=== PATIENT | female | born 1965 | race Two or more races ===

== ENCOUNTER 2020-01-19 12:47 | Inpatient (IN) | payer MEDICAID ==
[~2020-01-19] VITALS: Ht 152.4 cm; Wt 49.9 kg
[2020-01-19 13:00] VITALS: BP 96/63
--- NOTE | 2020-01-19 13:15 | NUR ---
ED Nurse Note: PT. BROUGHT IN BY [facility] DUE TO FLU-LIKE SYMPTOMS. PT IS A/OX3, BOLIVIAN SPEAKING, CONTINENT B/B, VSS AT THIS TIME, ON ROOM AIR, RESPIRATIONS EVEN AND UNLABORED, NAD NOTED, DENIES PAIN AT THIS TIME, AMBULATORY.
--- NOTE | 2020-01-19 13:30 | NUR ---
ED Nurse Note: INSERTED IV ON RAC 22G AND LFA 22G, INTACT AND PATENT. BLOOD COLLECTED AND SENT TO LAB.
--- NOTE | 2020-01-19 13:31 | Emergency Room Report ---
History of Present Illness General Chief Complaint: Flu Like Symptoms Source: Medical Record, EMS, PMD - Dr. Bower (Esperanza Bill M.D.) Present Illness HPI Patient is a 54-year-old female past medical history of HIV, hepatic encephalopathy, CVA who was brought in from her extended care facility to the ER by EMS for flulike symptoms. Patient's primary care physician called ahead of time saying that there is a COVID-19 outbreak in their extended care facility. Patient reportedly told the staff there that she felt weak and could not taste her food. Patient is awake but confused and a poor historian. She has no acute complaints. She cannot tell me where she is or why she is here. 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: No (Esperanza Bill M.D.) Patient History Reviewed Nursing Documentation: PMH: Agreed; PSxH: Agreed (Esperanza Bill M.D.) Review of Systems All Other Systems: limited - encephalopathy (Esperanza Bill M.D.) Physical Exam Vital Signs Date Time Temp Pulse Resp B/P (MAP) Pulse Ox O2 Delivery O2 Flow Rate FiO2 01/19/20 12:51 98.8 74 18 96/63 (74) 94 Room Air Sp02 EP Interpretation: reviewed, abnormal - hypoxic General Appearance: no apparent distress Head: normocephalic, atraumatic Eyes: bilateral eye normal inspection, bilateral eye PERRL ENT: dry mucus membranes Neck: full range of motion, no meningismus Respiratory: no respiratory distress, no accessory muscle use, speaking full sentences Cardiovascular #1: regular rate, rhythm Gastrointestinal: non tender, soft Rectal: deferred Neurologic: other - Disoriented and confused Skin: no rash Lymphatic: no adenopathy (Esperanza Bill M.D.) Procedures Critical Care Time Critical Care Time Total critical care time: Approximately 31 minutes Due to a high probability of clinically significant, life threatening deterioration, the patient required the highest level of preparedness to intervene emergently and I personally spent this critical care time directly and personally managing the patient. This critical care time included obtaining a history, examining the patient, pulse oximetry, ordering and reviewing studies, ordering treatments, evaluating response to treatment and updating management plan as needed, frequent reassessment and discussion with other providers as well as arranging for ultimate disposition. This critical to care time was performed to assess and manage the high probability of life-threatening deterioration that could result in multiorgan failure. This critical care time is separate from the separately billable procedures and treating other patients. (Harry Wyatt MD) Medical Decision Making Diagnostic Impression: Primary Impression: Pneumonia due to COVID-19 virus Additional Impressions: AMS (altered mental status) Elevated d-dimer ER Course Assumed care of the patient from the previous provider at approximately 1400 hrs. Please refer to initial note for full history and physical exam. Briefly, 54-year-old alf resident presents for altered mental status and loss of sense of smell and taste. Patient tested positive for COVID-19. Possible early infiltrate right lower lobe. Treated with antibiotics. D-dimer elevated. Treated with Lovenox. Patient is saturating 100% on room air, no respiratory distress, heart rate within normal limits. Admitted to [facility], Dr. Gallegos for further care. Laboratory Tests Test 01/19/20 13:30 01/19/20 14:23 01/19/20 15:20 Prothrombin Time 10.0 SEC (9.30-11.50) Prothrombin Time INR 0.9 (0.9-1.1) Activated Partial Thromboplast Time 25 SEC (23-33) D-Dimer > 35.20 mg/L FEU Sodium Level 135 MMOL/L (136-145) L Potassium Level 4.3 MMOL/L (3.5-5.1) Chloride Level 105 MMOL/L (98-107) Carbon Dioxide Level 24 MMOL/L (21-32) Anion Gap 6 mmol/L (5-15) Blood Urea Nitrogen 23 mg/dL (7-18) H Creatinine 0.9 MG/DL (0.55-1.30) Estimated Glomerular Filtration Rate > 60 mL/min (>60) Glucose Level 90 MG/DL (74-106) Lactic Acid Level 0.60 mmol/L (0.4-2.0) Calcium Level 8.4 MG/DL (8.5-10.1) L Magnesium Level 2.3 MG/DL (1.8-2.4) Ferritin 129 NG/ML (8-388) Total Bilirubin 0.5 MG/DL (0.2-1.0) Aspartate Amino Transferase (AST) 40 U/L (15-37) H Alanine Aminotransferase (ALT) 30 U/L (12-78) Alkaline Phosphatase 89 U/L (46-116) Ammonia 44 umol/L (11-32) H Lactate Dehydrogenase 273 U/L (81-234) H Total Creatine Kinase 85 U/L (26-308) Creatine Kinase MB < 0.5 NG/ML (0.0-3.6) Creatine Kinase MB Relative Index 0.5 Troponin I 0.000 ng/mL (0.000-0.056) C-Reactive Protein, Quantitative 1.8 mg/dL (0.00-0.90) H Pro-B-Type Natriuretic Peptide 60 pg/mL (0-125) Total Protein 9.8 G/DL (6.4-8.2) H Albumin 3.0 G/DL (3.4-5.0) L Globulin 6.8 g/dL Albumin/Globulin Ratio 0.4 (1.0-2.7) L Arterial Blood pH 7.386 (7.350-7.450) Arterial Blood Partial Pressure CO2 34.7 mmHg (35.0-45.0) L Arterial Blood Partial Pressure O2 81.2 mmHg (75.0-100.0) Arterial Blood HCO3 20.3 mmol/L (22.0-26.0) L Arterial Blood Oxygen Saturation 95.2 % (95-100) Arterial Blood Base Excess -4.0 (-2-2) L Gonzalo Test Positive White Blood Count 6.0 K/UL (4.8-10.8) Red Blood Count 3.88 M/UL (4.20-5.40) L Hemoglobin 12.3 G/DL (12.0-16.0) Hematocrit 36.3 % (37.0-47.0) L Mean Corpuscular Volume 94 FL (80-99) Mean Corpuscular Hemoglobin 31.6 PG (27.0-31.0) H Mean Corpuscular Hemoglobin Concent 33.7 G/DL (32.0-36.0) Red Cell Distribution Width 13.7 % (11.6-14.8) Platelet Count 268 K/UL (150-450) Mean Platelet Volume 6.0 FL (6.5-10.1) L Neutrophils (%) (Auto) 24.9 % (45.0-75.0) L Lymphocytes (%) (Auto) 62.2 % (20.0-45.0) H Monocytes (%) (Auto) 10.4 % (1.0-10.0) H Eosinophils (%) (Auto) 1.3 % (0.0-3.0) Basophils (%) (Auto) 1.2 % (0.0-2.0) Microbiology Date/Time Source Procedure Growth Status 01/19/20 11:30 Nasopharynx SARS-CoV-2 RdRp Gene Assay - Final Complete (Harry Wyatt MD) EKG Diagnostic Results Troponin ordered: Yes When was troponin ordered?: Jan 19, 2020 EKG Time: 13:23 EP Interpretation: Esperanza Bill MD Rate: normal - 74 bpm Rhythm: NSR ST Segments: no acute changes ASA given to the pt in ED: No (Esperanza Bill M.D.) Rhythm Strip Diag. Results Rhythm Strip Time: 13:32 EP Interpretation: yes - Esperanza Bill MD Rate: 83 bpm Rhythm: NSR, no PVC's, no ectopy (Esperanza Bill M.D.) Chest X-Ray Diagnostic Results Chest X-Ray Diagnostic Results : Chest X-Ray Ordered: Yes # of Views/Limited/Complete: 1 View Indication: Shortness of Breath EP Interpretation: Yes Interpretation: no effusion, no pneumothorax, other - Questionable early infiltrate right lower lobe versus atelectasis Impression: Other - Early pneumonia right lower lobe Electronically Signed by: Electronically signed by Dr. Harry Wyatt MD (Harry Wyatt MD) Last Vital Signs Date Time Temp Pulse Resp B/P (MAP) Pulse Ox O2 Delivery O2 Flow Rate FiO2 01/19/20 12:51 98.8 74 18 96/63 (74) 94 Room Air (Esperanza Bill M.D.) Disposition: ADMITTED INPATIENT Condition: Serious Esperanza Bill M.D. Jan 19, 2020 13:31 Harry Wyatt MD Jan 19, 2020 14:42
[2020-01-19] MEDS ORDERED: Cefepime HCl 2 GM in D5W 55 ML IVPB ONE (14:00)
[2020-01-19] MEDS ORDERED: Vancomycin 1 GM in NS 275 ML IVPB ONE (14:00)
[2020-01-19 14:47] LABS: ANION GAP 6 mmol/L (5-15); BLOOD UREA NITROGEN 23 mg/dL (7-18); CALCIUM 8.4 MG/DL (8.5-10.1); CARBON DIOXIDE 24 MMOL/L (21-32); CHLORIDE 105 MMOL/L (98-107); CREATININE 0.9 MG/DL (0.55-1.30); POTASSIUM 4.3 MMOL/L (3.5-5.1); SODIUM 135 MMOL/L (136-145)
[2020-01-19 14:50] LABS: AMMONIA 44 umol/L (11-32)
[2020-01-19 14:56] LABS: INR 0.9 (0.9-1.1); PARTIAL THROMBOPLASTIN TIME 25 SEC (23-33)
[2020-01-19 15:03] LABS: ALANINE AMINOTRANSFERASE 30 U/L (12-78); ALBUMIN/GLOBULIN RATIO 0.4 (1.0-2.7); ALKALINE PHOSPHATASE 89 U/L (46-116); ASPARTATE AMINO TRANSFERASE 40 U/L (15-37); BILIRUBIN,TOTAL 0.5 MG/DL (0.2-1.0); CKMB < 0.5 NG/ML (0.0-3.6); CREATINE KINASE 85 U/L (26-308); FERRITIN 129 NG/ML (8-388); LACTATE DEHYDROGENASE 273 U/L (81-234)
[2020-01-19 15:39] LABS: HEMATOCRIT 36.3 % (37.0-47.0); HEMOGLOBIN 12.3 G/DL (12.0-16.0); MEAN CORPUSCULAR VOLUME 94 FL (80-99); PLATELET COUNT 268 K/UL (150-450); RED BLOOD COUNT 3.88 M/UL (4.20-5.40); RED CELL DISTRIBUTION WIDTH 13.7 % (11.6-14.8)
[2020-01-19] MEDS ORDERED: MULTIVITAMINS1 EAC8 ORAL (15:39)
[2020-01-19] MEDS ORDERED: ADVIL200 M2 ORAL (15:39)
[2020-01-19] MEDS ORDERED: VITAMIN D325 MC1 PO (15:39)
[2020-01-19] MEDS ORDERED: DOCUSATE SODIU100 MG ORAL (15:39)
[2020-01-19] MEDS ORDERED: UROCIT-K10 MEQ PO (15:39)
[2020-01-19] MEDS ORDERED: BIKTARVY 50-201 EACH PO (15:39)
[2020-01-19] MEDS ORDERED: VITAMIN B COMP1 EAC2 ORAL (15:39)
[2020-01-19] MEDS ORDERED: MILK OF MA400 MG/51 ORAL (15:39)
[2020-01-19] MEDS ORDERED: MIRALAX17 G2 ORAL (15:39)
[2020-01-19 15:40] LABS: BASOPHILS % (AUTO) 1.2 % (0.0-2.0); EOSINOPHILS % (AUTO) 1.3 % (0.0-3.0); LYMPHOCYTES % (AUTO) 62.2 % (20.0-45.0); MONOCYTES % (AUTO) 10.4 % (1.0-10.0); NEUTROPHILS % (AUTO) 24.9 % (45.0-75.0)
[2020-01-19] MEDS ORDERED: Enoxaparin 100mg Inj SUBQ SCH (16:45)
--- NOTE | 2020-01-19 16:45 | NUR ---
Note undone in EDM - 01/19/20 at 1647 by GATO ED Nurse Note: PT. BROUGHT IN BY [facility] DUE TO FLU-LIKE SYMPTOMS. PT IS A/OX3, CYMRO SPEAKING, CONTINENT B/B, VSS AT THIS TIME, ON ROOM AIR, RESPIRATIONS EVEN AND UNLABORED, NAD NOTED, DENIES PAIN AT THIS TIME, AMBULATORY.
--- NOTE | 2020-01-19 17:06 | NUR ---
ED Nurse Note: gave report to tanner link on tele unit. rn will call when bed is ready.
--- NOTE | 2020-01-19 17:47 | NUR ---
ED Nurse Note: pt was admitted to [facility] due to covid positive and pna. vss, nad noted, denies pain at this time, on room air, transferred via gurney.
--- NOTE | 2020-01-19 17:50 | NUR ---
NURSE NOTES: Received patient into room 403 bed 2,patient alert toname,respirations unlabored,will notify alarm call light within reach.
--- NOTE | 2020-01-19 18:07 | Diagnostic Imaging Report ---
Indication: Shortness of breath Technique: One view of the chest Comparison: none Findings: There is a calcified granuloma in the right midlung. Is minimal atelectasis at the left lateral lung base. Lungs and pleural spaces are otherwise clear. The heart size is normal. Impression: Evidence of old granulomatous disease No acute process
--- NOTE | 2020-01-19 19:45 | NUR ---
NURSE HAND-OFF: Jessika BONNER Important Events on Shift:[Admit ] Patient Status: [] Diet: [] Pending Orders: [ Pending Results/Labs:[] Pending MD notification:[] Latest Vital Signs: Temperature 98.4 , Pulse 78 , B/P 128 /67 , Respiratory Rate 16 , O2 SAT 99 , Room Air, O2 Flow Rate . Vital Sign Comment: [] Latest Gardner Fall Score: Fall Risk: Y Safety Measures: Call light , Bed Alarm , Side Rails , Bed position . Fall Precautions: Y Report given to [].
--- NOTE | 2020-01-19 19:46 | NUR ---
NURSE NOTES: Received patient in no apparent distress. A&OX2, confused. IV sites are patent and intact. Bed in lowest position. Call light within reach. Will continue to monitor.
[2020-01-19 20:00] VITALS: BP 128/70
--- NOTE | 2020-01-19 20:32 | NUR ---
NURSE NOTES: Obtained new admit order from Dr. Gallegos.
[2020-01-19] MEDS ORDERED: Miralax 17gm pkt ORAL PRN (21:30)
[2020-01-19] MEDS ORDERED: Acetaminophen 500mg (ES) tab ORAL PRN (21:30)
[2020-01-19] MEDS ORDERED: Milk of Magnesia 30ml Ud ORAL PRN (21:30)
--- NOTE | 2020-01-19 21:50 | NUR ---
NURSE NOTES: Pharmacy called, they don't have Biktarvy(HIV medication). Nurse contact Dr. Gallegos. Dr. Gallegos wants to contact Dr. Beatriz Frazier. Nurse contact Dr. Beatriz Frazier. Dr. Beatriz Frazier says that he will come tomorrow and will prescribe medication.
--- NOTE | 2020-01-19 23:01 | History and Physical Report ---
DATE OF ADMISSION: 01/19/2020 HISTORY OF PRESENT ILLNESS: Patient is admitted for COVID positive pneumonia, elevated D-dimer came from a custodial with outbreak with flu-like symptoms with fever at the custodial. Infiltrate on the chest x-ray and got antibiotics in the ER for COVID pneumonia. Patient has shortness of breath and cough. Patient has history of HIV in the past, encephalopathy, poor historian. Also has history of CVA. Comes in with shortness of breath and cough and flu-like symptoms. Admitted for COVID positive pneumonia. PAST MEDICAL HISTORY: History of hepatic encephalopathy, cirrhosis, HIV, CVA, constipation. PAST SURGICAL HISTORY: Denies. FAMILY HISTORY: Noncontributory. SOCIAL HISTORY: Has history of alcohol abuse, history of smoking. Denies history of drug abuse. Comes from a custodial. MEDICATIONS: Docusate, ibuprofen, potassium. ALLERGIES: Risperidone, lamivudine. REVIEW OF SYSTEMS: HEENT: Denies headaches. RESPIRATORY: Reports shortness of breath and cough. CARDIOVASCULAR: Denies chest pain. GASTROINTESTINAL: Denies nausea, vomiting, or diarrhea. EXTREMITIES: Denies pain. CENTRAL NERVOUS SYSTEM: Very poor historian. PHYSICAL EXAMINATION: VITAL SIGNS: Temperature 98.8, pulse 74, blood pressure 196/60. HEENT: PERRLA. CHEST: Bibasilar rhonchi. CARDIOVASCULAR: Regular rate and rhythm. No murmurs or extra sounds. GASTROINTESTINAL: Soft, nontender, nondistended. No organomegaly. EXTREMITIES: No edema. Has generalized weakness. Reflexes equal on both sides. LABORATORY AND DIAGNOSTIC DATA: Chest x-ray shows possible infiltrate. WBC of 6, hemoglobin 12.3, platelets of 268. Sodium 135, potassium 4.3, BUN of 23, creatinine 1.9, glucose of 90. AST of 40, ALT of 30. ASSESSMENT AND PLAN: COVID-positive pneumonia as well as elevated D-dimer, fever at the custodial, infiltrate on the chest x-ray. I have consulted Dr. Domenic Perdomo, Dr. Gerald Win, Dr. Karl Henderson to help with the management of above-mentioned abnormal imaging, abnormal symptoms, abnormal laboratory findings. Antibiotics per Dr. Karl Henderson. Rach Gallegos M.D. DR: EVERARDO JOB#: [id number] CC:
[2020-01-20] VITALS: BP 97/62
[2020-01-20 04:00] VITALS: BP 102/97
--- NOTE | 2020-01-20 06:46 | Consultation ---
History of Present Illness General Chief Complaint: Flu Like Symptoms Present Illness Allergies: Coded Allergies: LAMIVUDINE (Verified Allergy, Unknown, 01/19/20) RISPERIDONE (Verified Allergy, Unknown, 01/19/20) Medication History Scheduled Cholecalciferol (Vitamin D3) (Vitamin D3*), 5,000 UNIT PO DAILY, (Reported) Docusate Sodium* (Docusate Sodium*), 200 MG ORAL DAILY, (Reported) Ibuprofen* (Advil*), 200 MG ORAL Q6H, (Reported) Magnesium Hydroxide* (Milk Of Magnesia*), 30 ML ORAL DAILY, (Reported) Multivitamin With Minerals (Multivitamins With Minerals*), 1 TAB ORAL DAILY, (Reported) Scheduled PRN Polyethylene Glycol 3350* (Miralax*), 17 GM ORAL DAILY PRN for Constipation, (Reported) Miscellaneous Medications Bictegrav/Emtricit/Tenofov Ala (Biktarvy 50-200-25 mg Tablet), 1 EACH PO, (Reported) Potassium Citrate (Urocit-K), 10 MEQ PO, (Reported) Vitamin B Complex (Vitamin B Complex), 1 CAP ORAL, (Reported) Patient History Healthcare decision maker Resuscitation status Advanced Directive on File No Physical Exam Last 24 Hour Vital Signs Date Time Temp Pulse Resp B/P (MAP) Pulse Ox O2 Delivery O2 Flow Rate FiO2 01/20/20 04:00 97.3 82 17 102/97 (99) 98 01/20/20 00:00 98.1 74 17 97/62 (74) 97 01/19/20 21:00 Room Air 01/19/20 20:00 97.3 96 18 128/70 (89) 97 01/19/20 19:00 Room Air 01/19/20 17:43 98.4 78 16 128/67 99 Room Air 01/19/20 13:00 98.8 74 18 96/63 94 Room Air 01/19/20 13:00 74 18 Room Air 100 01/19/20 12:51 98.8 74 18 96/63 (74) 94 Room Air Intake and Output 01/19/20 01/20/20 19:00 07:00 Intake Total 2000 ml Balance 2000 ml Intake Oral 0 ml IV Total 2000 ml # Voids 2 Laboratory Tests Test 01/19/20 13:30 01/19/20 14:23 01/19/20 15:20 Prothrombin Time 10.0 SEC (9.30-11.50) Prothromb Time International Ratio 0.9 (0.9-1.1) Activated Partial Thromboplast Time 25 SEC (23-33) D-Dimer > 35.20 mg/L FEU Sodium Level 135 MMOL/L (136-145) L Potassium Level 4.3 MMOL/L (3.5-5.1) Chloride Level 105 MMOL/L (98-107) Carbon Dioxide Level 24 MMOL/L (21-32) Anion Gap 6 mmol/L (5-15) Blood Urea Nitrogen 23 mg/dL (7-18) H Creatinine 0.9 MG/DL (0.55-1.30) Estimat Glomerular Filtration Rate > 60 mL/min (>60) Glucose Level 90 MG/DL (74-106) Lactic Acid Level 0.60 mmol/L (0.4-2.0) Calcium Level 8.4 MG/DL (8.5-10.1) L Magnesium Level 2.3 MG/DL (1.8-2.4) Ferritin 129 NG/ML (8-388) Total Bilirubin 0.5 MG/DL (0.2-1.0) Aspartate Amino Transf (AST/SGOT) 40 U/L (15-37) H Alanine Aminotransferase (ALT/SGPT) 30 U/L (12-78) Alkaline Phosphatase 89 U/L (46-116) Ammonia 44 umol/L (11-32) H Lactate Dehydrogenase 273 U/L (81-234) H Total Creatine Kinase 85 U/L (26-308) Creatine Kinase MB < 0.5 NG/ML (0.0-3.6) Creatine Kinase MB Relative Index 0.5 Troponin I 0.000 ng/mL (0.000-0.056) C-Reactive Protein, Quantitative 1.8 mg/dL (0.00-0.90) H Pro-B-Type Natriuretic Peptide 60 pg/mL (0-125) Total Protein 9.8 G/DL (6.4-8.2) H Albumin 3.0 G/DL (3.4-5.0) L Globulin 6.8 g/dL Albumin/Globulin Ratio 0.4 (1.0-2.7) L Arterial Blood pH 7.386 (7.350-7.450) Arterial Blood Partial Pressure CO2 34.7 mmHg (35.0-45.0) L Arterial Blood Partial Pressure O2 81.2 mmHg (75.0-100.0) Arterial Blood HCO3 20.3 mmol/L (22.0-26.0) L Arterial Blood Oxygen Saturation 95.2 % (95-100) Arterial Blood Base Excess -4.0 (-2-2) L Gonzalo Test Positive White Blood Count 6.0 K/UL (4.8-10.8) Red Blood Count 3.88 M/UL (4.20-5.40) L Hemoglobin 12.3 G/DL (12.0-16.0) Hematocrit 36.3 % (37.0-47.0) L Mean Corpuscular Volume 94 FL (80-99) Mean Corpuscular Hemoglobin 31.6 PG (27.0-31.0) H Mean Corpuscular Hemoglobin Concent 33.7 G/DL (32.0-36.0) Red Cell Distribution Width 13.7 % (11.6-14.8) Platelet Count 268 K/UL (150-450) Mean Platelet Volume 6.0 FL (6.5-10.1) L Neutrophils (%) (Auto) 24.9 % (45.0-75.0) L Lymphocytes (%) (Auto) 62.2 % (20.0-45.0) H Monocytes (%) (Auto) 10.4 % (1.0-10.0) H Eosinophils (%) (Auto) 1.3 % (0.0-3.0) Basophils (%) (Auto) 1.2 % (0.0-2.0) Microbiology Date/Time Source Procedure Growth Status 01/19/20 11:30 Nasopharynx SARS-CoV-2 RdRp Gene Assay - Final Complete Height (Feet): 5 Height (Inches): 0.00 Weight (Pounds): 110 Medications Current Medications Medications (Trade) Dose Ordered Sig/Gaurav Route PRN Reason Start Time Stop Time Status Last Admin Dose Admin Acetaminophen (Tylenol) 500 mg Q4H PRN ORAL Mild Pain (Pain Scale 1-3) 01/19/20 21:30 02/18/20 21:29 Bisacodyl (Dulcolax) 10 mg DAILYPRN PRN RECTAL Constipation 01/19/20 21:30 04/18/20 21:29 Cyanocobalamin (Vitamin B-12) 500 mcg DAILY ORAL 01/20/20 09:00 02/19/20 08:59 Docusate Sodium (Colace) 200 mg DAILY ORAL 01/20/20 09:00 02/19/20 08:59 Ibuprofen (Advil) 200 mg Q4H PRN ORAL persistent headache 01/19/20 21:15 02/18/20 21:14 Magnesium Hydroxide (Mom) 30 ml DAILYPRN PRN ORAL Constipation 01/19/20 21:30 02/18/20 21:29 Multivitamins (Multivitamins) 1 tab DAILY ORAL 01/20/20 09:00 02/19/20 08:59 Non-Formulary Medication (Non-Formulary Med) 1 ea DAILY ORAL 01/20/20 09:00 02/19/20 08:59 UNV Non-Formulary Medication (Non-Formulary Med) 1 ea DAILY ORAL 01/20/20 09:00 02/19/20 08:59 UNV Polyethylene Glycol (Miralax) 17 gm DAILY PRN ORAL Constipation 01/19/20 21:30 02/18/20 21:29 Trimethoprim/ Sulfamethoxazole (Bactrim-DS) 1 tab 3XW ORAL 01/21/20 09:00 01/28/20 08:59 Vitamin B Complex (Vitamin B Complex) 1 tab DAILY ORAL 01/20/20 09:00 04/19/20 08:59 Vitamin D (Vitamin D) 5,000 intlu DAILY ORAL 01/20/20 09:00 02/19/20 08:59 Assessment/Plan Assessment/Plan: Hematology Consultation REMayte MD: Rach Lou RFC: ANDREA ddimer DOS: 01/20/2020 ID 54-year-old female past medical history of HIV, hepatic encephalopathy, CVA who was brought in from her extended care facility to the ER by EMS for flulike symptoms. Patient's primary care physician called ahead of time saying that there is a COVID-19 outbreak in their extended care facility. Patient yumiko rtedly told the staff there that she felt weak and could not taste her food. Patient is awake but confused and a poor historian. She has no acute complaints. She cannot tell me where she is or why she is here. Allergies: LAMIVUDINE (Verified Allergy, Unknown, 01/19/20) RISPERIDONE (Verified Allergy, Unknown, 01/19/20) COVID-19 Screening Contact w/high risk pt: No Experienced COVID-19 symptoms?: No COVID-19 Testing performed DEDENTER: No Patient History Reviewed Nursing Documentation: PMH: Agreed; PSxH: Agreed Review of Systems All Other Systems: limited - encephalopathy Physical Exam Vitals: reviewed, abnormal - hypoxic Gen: no apparent distress HEENT: normocephalic, atraumatic, dry mucus membranes Respiratory: no respiratory distress Cardiovascular: regular rate, rhythm Gastrointestinal: non tender, soft Rectal: deferred Neurologic: other - Disoriented and confused Skin: no rash Lymphatic: no adenopathy Labs; noted Imaging: noted Assessment and Recs # Elevated ddimer, in this case is very likely due to covid requires minimal anticoag --> duplex lower legs has been ordered --> no e/o pe at this time --> per pulm management # Pneumonia due to COVID-19 virus --> abx and isolation precuations --> consider steriods # AMS (altered mental status) --> likely is due to above # Dehydration --> goal of euvolemia as per renal # Early pneumonia right lower lobe --> abx # Granulmatous disease --> per pulm # Dvt ppx lovenox sq Appreciate consultation and dw Gerald Waterman MD Jan 20, 2020 06:46
[2020-01-20 06:53] LABS: HEMATOCRIT 28.1 % (37.0-47.0); MEAN CORPUSCULAR VOLUME 88 FL (80-99); PLATELET COUNT 236 K/UL (150-450); RED BLOOD COUNT 3.18 M/UL (4.20-5.40); RED CELL DISTRIBUTION WIDTH 15.7 % (11.6-14.8); WHITE BLOOD COUNT 5.1 K/UL (4.8-10.8)
--- NOTE | 2020-01-20 07:17 | NUR ---
NURSE HAND-OFF: Important Events on Shift: Contact Dr. Henderson to continue HIV medication Patient Status: Diet: Regular Pending Orders: Pending Results/Labs: Pending MD notification: Latest Vital Signs: Temperature 97.3 , Pulse 82 , B/P 102 /97 , Respiratory Rate 17 , O2 SAT 98 , Room Air, O2 Flow Rate . Vital Sign Comment: Latest Gardner Fall Score: 75 Fall Risk: High Risk Safety Measures: Call light Within Reach, Bed Alarm Zone 1, Side Rails Side Rails x2, Bed position Low and Locked. Fall Precautions: Yellow Socks Yellow Gown Door Sign Patient Fall Education Report given to Blaine BONNER.
--- NOTE | 2020-01-20 07:18 | NUR ---
NURSE NOTES: Received report from KAILEY Rosen. Patient seen in bed AAOx2 with episodes of confusion, ambulatory with unsteady gait, and on room air. Breathing is even and unlabored with no SOB noted at this time. Patient was instructed to stay in bed and use call light for assistance. Previous shift endorsed that patient has 2 pending prescription needed to continue home meds, will follow up with Maurice Henderson when seen on rounds. Bed is locked and placed in lowest position. Call light within reach. Will continue to monitor
[2020-01-20 07:42] LABS: ALBUMIN 2.6 G/DL (3.4-5.0); ALBUMIN/GLOBULIN RATIO 0.4 (1.0-2.7); BILIRUBIN,TOTAL 0.5 MG/DL (0.2-1.0); CALCIUM 7.8 MG/DL (8.5-10.1); POTASSIUM 3.3 MMOL/L (3.5-5.1)
[2020-01-20 08:00] VITALS: BP 102/68
[2020-01-20] MEDS: Vitamin B-12 500mcg tab ORAL SCH (08:24)
[2020-01-20] MEDS: Vitamin D 1000 IU Tab ORAL SCH (08:24)
[2020-01-20] MEDS: Docusate 100mg cap ORAL SCH (08:24)
[2020-01-20] MEDS: Vitamin B Complex Tab ORAL SCH (08:24)
[2020-01-20] MEDS ORDERED: Enoxaparin 40mg Inj SUBQ SCH (09:00)
--- NOTE | 2020-01-20 10:17 | NUR ---
NURSE NOTES: RN notified Dr. giraldo and made aware of patient Potassium level. RN received order for KCl liquid 20 meq ONCE
--- NOTE | 2020-01-20 11:19 | NUR ---
INSURANCE CLINICALS FAXED TO [facility] [phone] PH [phone]
[2020-01-20 12:00] VITALS: BP 103/67
--- NOTE | 2020-01-20 12:32 | NUR ---
NURSE NOTES: Dr. Freddie Henderson seen during his rounds. RN obtained prescription for biktarvy and faxed to [facility] to deliver to floor. RN made Dr. Gallegos aware that Maurice Henderson will only give prescription for Biktarvy and not potassium citrate. Awaiting call back
--- NOTE | 2020-01-20 13:50 | NUR ---
NURSE NOTES: Per Dr. Gallegos, Rn received order to d/c potassium citrate (home meds)
[2020-01-20] MEDS: Patient's Own Med - BIKTARVY 50-200-25MG TAB ORAL SCH (14:10)
--- NOTE | 2020-01-20 14:16 | Consultation ---
DATE OF CONSULTATION: 01/20/2020 PULMONARY CONSULTATION CONSULTING PHYSICIAN: Domenic Perdomo MD. HISTORY OF PRESENT ILLNESS: This is a 54-year-old female admitted to the hospital for flu-like symptoms. The patient has a history of HIV positivity, hepatic encephalopathy, and previous CVA. At her nursing facility, there is an outbreak of COVID-19. The patient reports that she is unable to taste the food. The patient is a very poor historian. PAST MEDICAL HISTORY: Notable for HIV positivity, history of liver disease, history of previous hepatic encephalopathy, previous CVA. MEDICATIONS: Her list of current medications include Tylenol, Colace, vitamin B12, Lovenox 40 mg daily, Advil, milk of magnesia multivitamins, MiraLAX, Bactrim orally few times a week, vitamin B and D, cefepime, and IV fluids. REVIEW OF SYSTEMS: Denies any headaches, hematemesis, melena, or hematochezia. PHYSICAL EXAMINATION: GENERAL: Reveals a 54-year-old female. VITAL SIGNS: O2 saturation 99% on room air, blood pressure 102/60, heart rate 74, respirations . She is afebrile. HEENT: Unremarkable. CHEST: Clear breath sounds bilaterally. ABDOMEN: Soft. EXTREMITIES: There is no edema. LABORATORY DATA: Lab testing shows initial rapid COVID-19 test gene assay is positive. Other lab testing shows hemoglobin of 10, otherwise normal CBC and BMP. Potassium is 3.3. LDH 273. Troponin is negative. AST 40. Lactic acid 0.6. Coags show D-dimer of greater than 35. IMPRESSION: 1. COVID-19 pneumonia. 2. Elevated inflammatory markers with high D-dimer. 3. Right lower lobe infiltrate. 4. HIV. 5. History of liver disease. DISCUSSION: Admit to the hospital. We will initiate oxygen therapy as needed. We will start Decadron. Defer the use of remdesivir to ID specialist. Given her elevated inflammatory markers, I will initiate full-dose Lovenox. We will follow carefully. Domenic Perdomo M.D. DR: BALDEMAR JOB#: [id number] CC:
--- NOTE | 2020-01-20 14:45 | Consultation ---
DATE OF CONSULTATION: 01/20/2020 INFECTIOUS DISEASE CONSULTATION CONSULTING PHYSICIAN: Karl Henderson MD. PRIMARY ATTENDING PHYSICIAN: Rach Gallegos MD. REASON FOR CONSULTATION: COVID-19 disease and HIV. HISTORY OF PRESENT ILLNESS: This is a 54-year-old female admitted yesterday from a nursing facility with flu-like symptoms and altered mental status. The patient lives in a facility that has an outbreak of COVID-19. PAST MEDICAL HISTORY: Significant for HIV, hepatic encephalopathy. ALLERGIES: Allergic to lamivudine and risperidone. MEDICATIONS: Getting dexamethasone, Bactrim, enoxaparin, Colace, Biktarvy, magnesium hydroxide, Bisacodyl, and ibuprofen. SOCIAL HISTORY: custodial resident. Single. No other history obtainable by the patient. PHYSICAL EXAMINATION: VITAL SIGNS: Temperature 97.7, pulse 70, blood pressure 103/67. GENERAL APPEARANCE: No acute distress. HEAD AND NECK: [place] conjunctivae. HEART: Normal rate. LUNGS: Clear. ABDOMEN: Soft, nontender. EXTREMITIES: No edema. NEUROLOGIC: Awake, alert, responsive. LABORATORY DATA: Chest x-ray showed old granulomatous disease. No acute process. COVID-19 test was positive. WBC 5.1, hemoglobin 10.0, hematocrit 28.1, and platelets 236,000. Sodium 140, potassium 3.3, chloride 110, bicarb 22, BUN 17, creatinine 1. Glucose 79. Ammonia is 44. IMPRESSION: COVID-19 disease, seems to be mild, the patient is on room air oxygen. She has HIV unknown stage, has anemia, has altered mental status. RECOMMENDATION: We will continue Biktarvy. We will discontinue dexamethasone. We will continue Bactrim. We will try to obtain more information regarding past medical history and HIV status. At the end of my exam, I thank Dr. Gallegos for involving me in the care of this patient. Karl Henderson M.D. DR: TRINA JOB#: [id number] CC:
[2020-01-20 16:00] VITALS: BP 110/69
--- NOTE | 2020-01-20 17:41 | NUR ---
NURSE NOTES: Patient changed personal clothes to yellow gown multiple times but patient continuously changes back to personal clothes. RN instructed patient to stay in bed and gave fall risk education
--- NOTE | 2020-01-20 19:13 | NUR ---
NURSE HAND-OFF: Important Events on Shift:KCL 20meq given, Patient Status: stable Diet: regular Pending Orders: venous duplex Pending Results/Labs:n/a Pending MD notification:n/a Latest Vital Signs: Temperature 98.4 , Pulse 67 , B/P 110 /69 , Respiratory Rate 17 , O2 SAT 98 , Room Air, O2 Flow Rate . Vital Sign Comment: stable Latest Gardner Fall Score: 45 Fall Risk: High Risk Safety Measures: Call light Within Reach, Bed Alarm Zone 1, Side Rails Side Rails x2, Bed position Low and Locked. Fall Precautions: Yellow Socks Yellow Gown Door Sign Patient Fall Education Report given to KAILEY Yanes.
--- NOTE | 2020-01-20 19:30 | NUR ---
NURSE NOTES: Received report from KAILEY Cade. Received pt laying in bed AAOx2, on room air, breathing is even and unlabored with no SOB noted at this time. Denies any pain. Patient was instructed to stay in bed and use call light for assistance. Pt verbalized and acknowledge understanding of instructions. Bed is locked and in lowest position. Call light within reach. side rails up x 2. Will continue to monitor.
[2020-01-20 20:00] VITALS: BP 111/70
[2020-01-20] MEDS: Enoxaparin 60mg Inj SUBQ SCH (20:17)
--- NOTE | 2020-01-20 21:20 | General Progress Note ---
Subjective ROS Limited/Unobtainable: Yes Allergies: Coded Allergies: LAMIVUDINE (Verified Allergy, Unknown, 01/19/20) RISPERIDONE (Verified Allergy, Unknown, 01/19/20) Objective Last 24 Hour Vital Signs Date Time Temp Pulse Resp B/P (MAP) Pulse Ox O2 Delivery O2 Flow Rate FiO2 01/20/20 20:00 97.7 80 17 111/70 (84) 97 01/20/20 16:00 98.4 67 17 110/69 (83) 98 01/20/20 12:00 97.7 70 18 103/67 (79) 99 01/20/20 09:00 Room Air 01/20/20 08:00 97.1 79 18 102/68 (79) 99 01/20/20 04:00 97.3 82 17 102/97 (99) 98 01/20/20 00:00 98.1 74 17 97/62 (74) 97 Intake and Output 01/19/20 01/20/20 19:00 07:00 Intake Total 2000 ml 400 ml Balance 2000 ml 400 ml Intake Oral 0 ml IV Total 2000 ml Other 400 ml # Voids 2 3 Laboratory Tests 01/20/20 05:00: White Blood Count 5.1, Red Blood Count 3.18L, Hemoglobin 10.0L, Hematocrit 28.1L , Mean Corpuscular Volume 88, Mean Corpuscular Hemoglobin 31.3H, Mean Corpuscular Hemoglobin Concent 35.4, Red Cell Distribution Width 15.7H, Platelet Count 236, Mean Platelet Volume 5.9L, Neutrophils (%) (Auto) , Lymphocytes (%) (Auto) , Monocytes (%) (Auto) , Eosinophils (%) (Auto) , Basophils (%) (Auto) , Differential Total Cells Counted 100, Neutrophils % (Manual) 22L, Lymphocytes % (Manual) 66H, Monocytes % (Manual) 12H, Eosinophils % (Manual) 0, Basophils % (Manual) 0, Band Neutrophils 0, Platelet Estimate Adequate, Platelet Morphology Normal, Anisocytosis 1+, Sodium Level 140, Potassium Level 3.3L, Chloride Level 110H, Carbon Dioxide Level 22, Anion Gap 8, Blood Urea Nitrogen 17, Creatinine 1.0, Estimat Glomerular Filtration Rate 57.6, Glucose Level 79, Calcium Level 7.8L, Total Bilirubin 0.5, Aspartate Amino Transf (AST/SGOT) 25, Alanine Aminotransferase (ALT/SGPT) 25, Alkaline Phosphatase 74, Total Protein 8.4H, Albumin 2.6L, Globulin 5.8, Albumin/Globulin Ratio 0.4L Height (Feet): 5 Height (Inches): 0.00 Weight (Pounds): 110 Assessment/Plan Problem List: (1) Elevated d-dimer ICD Codes: R79.89 - Other specified abnormal findings of blood chemistry SNOMED: 118601851 (2) Pneumonia due to COVID-19 virus ICD Codes: U07.1 - COVID-19; J12.89 - Other viral pneumonia SNOMED: 327321538957758760 (3) AMS (altered mental status) ICD Codes: R41.82 - Altered mental status, unspecified SNOMED: 381392711 Status: progressing Assessment/Plan: afebrile pna prn supportive care reviewed chart and labs Rach Gallegos MD Jan 20, 2020 21:20
[2020-01-21] VITALS: BP 108/66
[2020-01-21 04:00] VITALS: BP 108/76
--- NOTE | 2020-01-21 06:50 | NUR ---
HAND-OFF: Report given to: KAILEY Cade
--- NOTE | 2020-01-21 06:56 | NUR ---
NURSE HAND-OFF: Important Events on Shift: None Patient Status: Stable Diet: Regular Pending Orders: N/A Pending Results/Labs: BMP Pending MD notification:N/A Latest Vital Signs: Temperature 98.6 , Pulse 82 , B/P 108 /76 , Respiratory Rate 18 , O2 SAT 98 , Room Air, O2 Flow Rate . Vital Sign Comment: Stable Latest Gardner Fall Score: 45 Fall Risk: High Risk Safety Measures: Call light Within Reach, Bed Alarm Zone 1, Side Rails Side Rails x2, Bed position Low and Locked. Fall Precautions: Yellow Socks Yellow Gown Door Sign Patient Fall Education Report given to KAILEY Cade Addendum: 01/21/20 at 0720 by TRUE HERNANDEZ RN Pending Orders: Venous Duplex R/O DVT
[2020-01-21 06:58] LABS: CALCIUM 8.3 MG/DL (8.5-10.1); POTASSIUM 3.5 MMOL/L (3.5-5.1)
--- NOTE | 2020-01-21 07:21 | NUR ---
NURSE HAND-OFF: Important Events on Shift: None Patient Status: Stable Diet: Regular Pending Orders: Venous Duplex Pending Results/Labs: N/A Pending MD notification:N/A Latest Vital Signs: Temperature 98.6 , Pulse 82 , B/P 108 /76 , Respiratory Rate 18 , O2 SAT 98 , Room Air, O2 Flow Rate . Vital Sign Comment: Stable Latest Gardner Fall Score: 45 Fall Risk: High Risk Safety Measures: Call light Within Reach, Bed Alarm Zone 1, Side Rails Side Rails x2, Bed position Low and Locked. Fall Precautions: Yellow Socks Yellow Gown Door Sign Patient Fall Education Report given to: KAILEY Cade
--- NOTE | 2020-01-21 07:24 | NUR ---
NURSE NOTES: Received report from KAILEY Hayden. Patient seen in bed AAOx2 with episodes of confusion, ambulatory with steady gait, and on room air. Patient refuses to wear yellow hospital gown and prefers personal clothing. Breathing is even and unlabored with no SOB noted at this time. Patient was instructed to stay in bed and use call light for assistance. Bed is locked and placed in lowest position. Call light within reach. Will continue to monitor
[2020-01-21 08:00] VITALS: BP 115/68
[2020-01-21] MEDS: Vitamin B Complex Tab ORAL SCH (08:09)
[2020-01-21] MEDS: Patient's Own Med - BIKTARVY 50-200-25MG TAB ORAL SCH (08:09)
[2020-01-21] MEDS: Docusate 100mg cap ORAL SCH (08:09)
[2020-01-21] MEDS: Vitamin D 1000 IU Tab ORAL SCH (08:09)
[2020-01-21] MEDS: Vitamin B-12 500mcg tab ORAL SCH (08:10)
[2020-01-21] MEDS: Bactrim-DS 1 tab ORAL SCH (08:10)
[2020-01-21] MEDS: Enoxaparin 60mg Inj SUBQ SCH ×2 (08:11→21:27)
--- NOTE | 2020-01-21 09:21 | Hematology/Onc Progress Note ---
Assessment/Plan Assessment/Plan Assessment and Recs # Elevated ddimer, in this case is very likely due to covid requires minimal anticoag --> duplex lower legs has been ordered-->neg --> no e/o pe at this time --> per pulm management # Pneumonia due to COVID-19 virus --> abx and isolation precuations --> consider steriods # AMS (altered mental status) --> likely is due to above # Dehydration --> goal of euvolemia as per renal # Early pneumonia right lower lobe --> abx # Granulmatous disease --> per pulm # Dvt ppx lovenox sq Appreciate consultation and dw RN Subjective Constitutional: Denies: no symptoms, chills, fever, malaise, weakness, other HEENT: Denies: no symptoms, eye pain, blurred vision, tearing, double vision, ear pain, ear discharge, nose pain, nose congestion, throat pain, throat swelling, mouth pain, mouth swelling, other Cardiovascular: Denies: no symptoms, chest pain, edema, irregular heart rate, lightheadedness, palpitations, syncope, other Respiratory: Denies: no symptoms, cough, shortness of breath, SOB with excertion, SOB at rest, sputum, wheezing, other Gastrointestinal/Abdominal: Denies: no symptoms, abdomen distended, abdominal pain, black stools, tarry stools, blood in stool, constipated, diarrhea, difficu lty swallowing, nausea, poor appetite, poor fluid intake, rectal bleeding, vomiting, other Genitourinary: Denies: no symptoms, burning, discharge, frequency, flank pain, hematuria, incontinence, pain, urgency, other Neurologic/Psychiatric: Denies: no symptoms, anxiety, depressed, emotional problems, headache, numbness, paresthesia, pre-existing deficit, seizure, tingling, tremors, weakness, other Endocrine: Denies: no symptoms, excessive sweating, flushing, intolerance to cold, intolerance to heat, increased hunger, increased thirst, increased urine, unexplained weight gain, unexplained weight loss, other Allergies: Coded Allergies: LAMIVUDINE (Verified Allergy, Unknown, 01/19/20) RISPERIDONE (Verified Allergy, Unknown, 01/19/20) Subjective 01/20 confused no bleeding or chills noted, cbc is reviewed Objective Objective Current Medications Medications (Trade) Dose Ordered Sig/Gaurav Route PRN Reason Start Time Stop Time Status Last Admin Dose Admin Acetaminophen (Tylenol) 500 mg Q4H PRN ORAL Mild Pain (Pain Scale 1-3) 01/19/20 21:30 02/18/20 21:29 Bisacodyl (Dulcolax) 10 mg DAILYPRN PRN RECTAL Constipation 01/19/20 21:30 04/18/20 21:29 Cyanocobalamin (Vitamin B-12) 500 mcg DAILY ORAL 01/20/20 09:00 02/19/20 08:59 01/21/20 08:10 Docusate Sodium (Colace) 200 mg DAILY ORAL 01/20/20 09:00 02/19/20 08:59 01/21/20 08:09 Enoxaparin Sodium (Lovenox) 50 mg EVERY 12 HOURS SUBQ 01/20/20 21:00 04/19/20 20:59 01/21/20 08:11 Ibuprofen (Advil) 200 mg Q4H PRN ORAL persistent headache 01/19/20 21:15 02/18/20 21:14 Magnesium Hydroxide (Mom) 30 ml DAILYPRN PRN ORAL Constipation 01/19/20 21:30 02/18/20 21:29 Multivitamins (Multivitamins) 1 tab DAILY ORAL 01/20/20 09:00 02/19/20 08:59 01/21/20 08:10 Patient Own Medication (Patient's Own Med) 1 ea DAILY ORAL 01/20/20 14:00 02/19/20 13:59 01/21/20 08:09 Polyethylene Glycol (Miralax) 17 gm DAILY PRN ORAL Constipation 01/19/20 21:30 02/18/20 21:29 Trimethoprim/ Sulfamethoxazole (Bactrim-DS) 1 tab 3XW ORAL 01/21/20 09:00 01/28/20 08:59 01/21/20 08:10 Vitamin B Complex (Vitamin B Complex) 1 tab DAILY ORAL 01/20/20 09:00 04/19/20 08:59 01/21/20 08:09 Vitamin D (Vitamin D) 5,000 intlu DAILY ORAL 01/20/20 09:00 02/19/20 08:59 01/21/20 08:09 Last 24 Hour Vital Signs Date Time Temp Pulse Resp B/P (MAP) Pulse Ox O2 Delivery O2 Flow Rate FiO2 01/21/20 04:00 98.6 82 18 108/76 (87) 98 01/21/20 00:00 98.6 86 18 108/66 (80) 98 01/20/20 21:00 Room Air 01/20/20 20:00 97.7 80 17 111/70 (84) 97 01/20/20 16:00 98.4 67 17 110/69 (83) 98 01/20/20 12:00 97.7 70 18 103/67 (79) 99 01/20/20 09:00 Room Air 01/20/20 08:00 97.1 79 18 102/68 (79) 99 01/20/20 04:00 97.3 82 17 102/97 (99) 98 01/20/20 00:00 98.1 74 17 97/62 (74) 97 01/19/20 21:00 Room Air 01/19/20 20:00 97.3 96 18 128/70 (89) 97 01/19/20 19:00 Room Air 01/19/20 17:43 98.4 78 16 128/67 99 Room Air 01/19/20 13:00 98.8 74 18 96/63 94 Room Air 01/19/20 13:00 74 18 Room Air 100 01/19/20 12:51 98.8 74 18 96/63 (74) 94 Room Air Intake and Output 01/20/20 01/21/20 19:00 07:00 Intake Total 500 ml 120 ml Balance 500 ml 120 ml Intake Oral 300 ml 120 ml Other 200 ml # Voids 2 3 Labs Test 01/19/20 13:30 01/19/20 14:23 01/19/20 15:20 01/20/20 05:00 Prothrombin Time 10.0 SEC (9.30-11.50) Prothromb Time International Ratio 0.9 (0.9-1.1) Activated Partial Thromboplast Time 25 SEC (23-33) D-Dimer > 35.20 mg/L FEU Sodium Level 135 MMOL/L (136-145) 140 MMOL/L (136-145) Potassium Level 4.3 MMOL/L (3.5-5.1) 3.3 MMOL/L (3.5-5.1) Chloride Level 105 MMOL/L (98-107) 110 MMOL/L (98-107) Carbon Dioxide Level 24 MMOL/L (21-32) 22 MMOL/L (21-32) Anion Gap 6 mmol/L (5-15) 8 mmol/L (5-15) Blood Urea Nitrogen 23 mg/dL (7-18) 17 mg/dL (7-18) Creatinine 0.9 MG/DL (0.55-1.30) 1.0 MG/DL (0.55-1.30) Estimat Glomerular Filtration Rate > 60 mL/min (>60) 57.6 mL/min (>60) Glucose Level 90 MG/DL (74-106) 79 MG/DL (74-106) Lactic Acid Level 0.60 mmol/L (0.4-2.0) Calcium Level 8.4 MG/DL (8.5-10.1) 7.8 MG/DL (8.5-10.1) Magnesium Level 2.3 MG/DL (1.8-2.4) Ferritin 129 NG/ML (8-388) Total Bilirubin 0.5 MG/DL (0.2-1.0) 0.5 MG/DL (0.2-1.0) Aspartate Amino Transf (AST/SGOT) 40 U/L (15-37) 25 U/L (15-37) Alanine Aminotransferase (ALT/SGPT) 30 U/L (12-78) 25 U/L (12-78) Alkaline Phosphatase 89 U/L (46-116) 74 U/L (46-116) Ammonia 44 umol/L (11-32) Lactate Dehydrogenase 273 U/L (81-234) Total Creatine Kinase 85 U/L (26-308) Creatine Kinase MB < 0.5 NG/ML (0.0-3.6) Creatine Kinase MB Relative Index 0.5 Troponin I 0.000 ng/mL (0.000-0.056) C-Reactive Protein, Quantitative 1.8 mg/dL (0.00-0.90) Pro-B-Type Natriuretic Peptide 60 pg/mL (0-125) Total Protein 9.8 G/DL (6.4-8.2) 8.4 G/DL (6.4-8.2) Albumin 3.0 G/DL (3.4-5.0) 2.6 G/DL (3.4-5.0) Globulin 6.8 g/dL 5.8 g/dL Albumin/Globulin Ratio 0.4 (1.0-2.7) 0.4 (1.0-2.7) Arterial Blood pH 7.386 (7.350-7.450) Arterial Blood Partial Pressure CO2 34.7 mmHg (35.0-45.0) Arterial Blood Partial Pressure O2 81.2 mmHg (75.0-100.0) Arterial Blood HCO3 20.3 mmol/L (22.0-26.0) Arterial Blood Oxygen Saturation 95.2 % (95-100) Arterial Blood Base Excess -4.0 (-2-2) Gonzalo Test Positive White Blood Count 6.0 K/UL (4.8-10.8) 5.1 K/UL (4.8-10.8) Red Blood Count 3.88 M/UL (4.20-5.40) 3.18 M/UL (4.20-5.40) Hemoglobin 12.3 G/DL (12.0-16.0) 10.0 G/DL (12.0-16.0) Hematocrit 36.3 % (37.0-47.0) 28.1 % (37.0-47.0) Mean Corpuscular Volume 94 FL (80-99) 88 FL (80-99) Mean Corpuscular Hemoglobin 31.6 PG (27.0-31.0) 31.3 PG (27.0-31.0) Mean Corpuscular Hemoglobin Concent 33.7 G/DL (32.0-36.0) 35.4 G/DL (32.0-36.0) Red Cell Distribution Width 13.7 % (11.6-14.8) 15.7 % (11.6-14.8) Platelet Count 268 K/UL (150-450) 236 K/UL (150-450) Mean Platelet Volume 6.0 FL (6.5-10.1) 5.9 FL (6.5-10.1) Neutrophils (%) (Auto) 24.9 % (45.0-75.0) % (45.0-75.0) Lymphocytes (%) (Auto) 62.2 % (20.0-45.0) % (20.0-45.0) Monocytes (%) (Auto) 10.4 % (1.0-10.0) % (1.0-10.0) Eosinophils (%) (Auto) 1.3 % (0.0-3.0) % (0.0-3.0) Basophils (%) (Auto) 1.2 % (0.0-2.0) % (0.0-2.0) Differential Total Cells Counted 100 Neutrophils % (Manual) 22 % (45-75) Lymphocytes % (Manual) 66 % (20-45) Monocytes % (Manual) 12 % (1-10) Eosinophils % (Manual) 0 % (0-3) Basophils % (Manual) 0 % (0-2) Band Neutrophils 0 % (0-8) Platelet Estimate Adequate Platelet Morphology Normal Anisocytosis 1+ Test 01/21/20 06:05 Sodium Level 138 MMOL/L (136-145) Potassium Level 3.5 MMOL/L (3.5-5.1) Chloride Level 107 MMOL/L (98-107) Carbon Dioxide Level 24 MMOL/L (21-32) Anion Gap 7 mmol/L (5-15) Blood Urea Nitrogen 22 mg/dL (7-18) Creatinine 1.0 MG/DL (0.55-1.30) Estimat Glomerular Filtration Rate 57.6 mL/min (>60) Glucose Level 90 MG/DL (74-106) Calcium Level 8.3 MG/DL (8.5-10.1) Height (Feet): 5 Height (Inches): 0.00 Weight (Pounds): 110 Objective Physical Exam Vitals: reviewed, abnormal - hypoxic Gen: no apparent distress HEENT: normocephalic, atraumatic, dry mucus membranes Respiratory: no respiratory distress Cardiovascular: regular rate, rhythm Gastrointestinal: non tender, soft Rectal: deferred Neurologic: other - Disoriented and confused Skin: no rash Lymphatic: no adenopathy Gerald Win MD Jan 21, 2020 09:21
--- NOTE | 2020-01-21 11:32 | Infectious Diseases Prog Note ---
Assessment/Plan Assessment/Plan IMPRESSION: COVID-19 disease, seems to be mild, HIV unknown stage, Anemia, Altered mental status. RECOMMENDATION: We will continue Biktarvy. We will continue Bactrim. Subjective ROS Limited/Unobtainable: Yes Constitutional: Reports: no symptoms Respiratory: Reports: no symptoms Gastrointestinal/Abdominal: Reports: no symptoms Allergies: Coded Allergies: LAMIVUDINE (Verified Allergy, Unknown, 01/19/20) RISPERIDONE (Verified Allergy, Unknown, 01/19/20) Objective Last 24 Hour Vital Signs Date Time Temp Pulse Resp B/P (MAP) Pulse Ox O2 Delivery O2 Flow Rate FiO2 01/21/20 09:00 Room Air 01/21/20 08:00 97.6 76 19 115/68 (84) 99 01/21/20 04:00 98.6 82 18 108/76 (87) 98 01/21/20 00:00 98.6 86 18 108/66 (80) 98 01/20/20 21:00 Room Air 01/20/20 20:00 97.7 80 17 111/70 (84) 97 01/20/20 16:00 98.4 67 17 110/69 (83) 98 01/20/20 12:00 97.7 70 18 103/67 (79) 99 Height (Feet): 5 Height (Inches): 0.00 Weight (Pounds): 110 General Appearance: no acute distress HEENT: mucous membranes moist Respiratory/Chest: lungs clear Cardiovascular: normal rate Abdomen: soft, non tender Extremities: no edema Neurologic/Psychiatric: alert, responsive Microbiology Date/Time Source Procedure Growth Status 01/19/20 23:00 Rectum Received 01/19/20 13:45 Blood Blood Culture - Preliminary NO GROWTH AFTER 24 HOURS Resulted 01/19/20 13:30 Blood Blood Culture - Preliminary NO GROWTH AFTER 24 HOURS Resulted 01/19/20 11:30 Nasopharynx SARS-CoV-2 RdRp Gene Assay - Final Complete Laboratory Tests Test 01/21/20 06:05 Sodium Level 138 MMOL/L (136-145) Potassium Level 3.5 MMOL/L (3.5-5.1) Chloride Level 107 MMOL/L (98-107) Carbon Dioxide Level 24 MMOL/L (21-32) Anion Gap 7 mmol/L (5-15) Blood Urea Nitrogen 22 mg/dL (7-18) H Creatinine 1.0 MG/DL (0.55-1.30) Estimat Glomerular Filtration Rate 57.6 mL/min (>60) Glucose Level 90 MG/DL (74-106) Calcium Level 8.3 MG/DL (8.5-10.1) L Current Medications Medications (Trade) Dose Ordered Sig/Gaurav Route PRN Reason Start Time Stop Time Status Last Admin Dose Admin Acetaminophen (Tylenol) 500 mg Q4H PRN ORAL Mild Pain (Pain Scale 1-3) 01/19/20 21:30 02/18/20 21:29 Bisacodyl (Dulcolax) 10 mg DAILYPRN PRN RECTAL Constipation 01/19/20 21:30 04/18/20 21:29 Cyanocobalamin (Vitamin B-12) 500 mcg DAILY ORAL 01/20/20 09:00 02/19/20 08:59 01/21/20 08:10 Docusate Sodium (Colace) 200 mg DAILY ORAL 01/20/20 09:00 02/19/20 08:59 01/21/20 08:09 Enoxaparin Sodium (Lovenox) 50 mg EVERY 12 HOURS SUBQ 01/20/20 21:00 04/19/20 20:59 01/21/20 08:11 Ibuprofen (Advil) 200 mg Q4H PRN ORAL persistent headache 01/19/20 21:15 02/18/20 21:14 Magnesium Hydroxide (Mom) 30 ml DAILYPRN PRN ORAL Constipation 01/19/20 21:30 02/18/20 21:29 Multivitamins (Multivitamins) 1 tab DAILY ORAL 01/20/20 09:00 02/19/20 08:59 01/21/20 08:10 Patient Own Medication (Patient's Own Med) 1 ea DAILY ORAL 01/20/20 14:00 02/19/20 13:59 01/21/20 08:09 Polyethylene Glycol (Miralax) 17 gm DAILY PRN ORAL Constipation 01/19/20 21:30 02/18/20 21:29 Trimethoprim/ Sulfamethoxazole (Bactrim-DS) 1 tab 3XW ORAL 01/21/20 09:00 01/28/20 08:59 01/21/20 08:10 Vitamin B Complex (Vitamin B Complex) 1 tab DAILY ORAL 01/20/20 09:00 04/19/20 08:59 01/21/20 08:09 Vitamin D (Vitamin D) 5,000 intlu DAILY ORAL 01/20/20 09:00 02/19/20 08:59 01/21/20 08:09 Karl Henderson MD Jan 21, 2020 11:32
[2020-01-21 12:00] VITALS: BP 109/70
--- NOTE | 2020-01-21 12:48 | Pulmonology Progress Note ---
Subjective ROS Limited/Unobtainable: Yes Interval Events: none major Constitutional: Reports: no symptoms Respiratory: Reports: no symptoms Cardiovascular: Reports: no symptoms Gastrointestinal/Abdominal: Reports: no symptoms Allergies: Coded Allergies: LAMIVUDINE (Verified Allergy, Unknown, 01/19/20) RISPERIDONE (Verified Allergy, Unknown, 01/19/20) Objective Last 24 Hour Vital Signs Date Time Temp Pulse Resp B/P (MAP) Pulse Ox O2 Delivery O2 Flow Rate FiO2 01/21/20 09:00 Room Air 01/21/20 08:00 97.6 76 19 115/68 (84) 99 01/21/20 04:00 98.6 82 18 108/76 (87) 98 01/21/20 00:00 98.6 86 18 108/66 (80) 98 01/20/20 21:00 Room Air 01/20/20 20:00 97.7 80 17 111/70 (84) 97 01/20/20 16:00 98.4 67 17 110/69 (83) 98 Intake and Output 01/20/20 01/21/20 19:00 07:00 Intake Total 500 ml 120 ml Balance 500 ml 120 ml Intake Oral 300 ml 120 ml Other 200 ml # Voids 2 3 Objective 01/21/2020 watching tv in a chair; apppears apathetic General Appearance: WD/WN, no acute distress HEENT: normocephalic Respiratory: chest wall non-tender Cardiovascular: normal rate, regular rhythm, no JVD Abdomen: soft, non tender Neurologic: alert Microbiology Date/Time Source Procedure Growth Status 01/19/20 23:00 Rectum Received 01/19/20 13:45 Blood Blood Culture - Preliminary NO GROWTH AFTER 24 HOURS Resulted 01/19/20 13:30 Blood Blood Culture - Preliminary NO GROWTH AFTER 24 HOURS Resulted 01/19/20 11:30 Nasopharynx SARS-CoV-2 RdRp Gene Assay - Final Complete Laboratory Tests 01/21/20 06:05: Sodium Level 138, Potassium Level 3.5, Chloride Level 107, Carbon Dioxide Level 24, Anion Gap 7, Blood Urea Nitrogen 22H, Creatinine 1.0, Estimat Glomerular Filtration Rate 57.6, Glucose Level 90, Calcium Level 8.3L Current Medications Medications (Trade) Dose Ordered Sig/Gaurav Route PRN Reason Start Time Stop Time Status Last Admin Dose Admin Acetaminophen (Tylenol) 500 mg Q4H PRN ORAL Mild Pain (Pain Scale 1-3) 01/19/20 21:30 02/18/20 21:29 Bisacodyl (Dulcolax) 10 mg DAILYPRN PRN RECTAL Constipation 01/19/20 21:30 04/18/20 21:29 Cyanocobalamin (Vitamin B-12) 500 mcg DAILY ORAL 01/20/20 09:00 02/19/20 08:59 01/21/20 08:10 Docusate Sodium (Colace) 200 mg DAILY ORAL 01/20/20 09:00 02/19/20 08:59 01/21/20 08:09 Enoxaparin Sodium (Lovenox) 50 mg EVERY 12 HOURS SUBQ 01/20/20 21:00 04/19/20 20:59 01/21/20 08:11 Ibuprofen (Advil) 200 mg Q4H PRN ORAL persistent headache 01/19/20 21:15 02/18/20 21:14 Magnesium Hydroxide (Mom) 30 ml DAILYPRN PRN ORAL Constipation 01/19/20 21:30 02/18/20 21:29 Multivitamins (Multivitamins) 1 tab DAILY ORAL 01/20/20 09:00 02/19/20 08:59 01/21/20 08:10 Patient Own Medication (Patient's Own Med) 1 ea DAILY ORAL 01/20/20 14:00 02/19/20 13:59 01/21/20 08:09 Polyethylene Glycol (Miralax) 17 gm DAILY PRN ORAL Constipation 01/19/20 21:30 02/18/20 21:29 Trimethoprim/ Sulfamethoxazole (Bactrim-DS) 1 tab 3XW ORAL 01/21/20 09:00 01/28/20 08:59 01/21/20 08:10 Vitamin B Complex (Vitamin B Complex) 1 tab DAILY ORAL 01/20/20 09:00 04/19/20 08:59 01/21/20 08:09 Vitamin D (Vitamin D) 5,000 intlu DAILY ORAL 01/20/20 09:00 02/19/20 08:59 01/21/20 08:09 Assessment/Plan Assessment/Plan 1. COVID-19 pneumonia. - pt in isolation - Decadron added - Defer the use of remdesivir to ID specialist. - Oxygen prn 2. Elevated inflammatory markers with high D-dimer. - Lovenox added 3. Right lower lobe infiltrate. 4. HIV of unknown stage - Biktarvy added 5. History of liver disease. 01/19/2020 CXR: calcified granuloma in the right midlung We will follow carefully. The care for this patient was discussed with my supervising physician Seen and examined by Dr. Perdomo as well Time spent for this case was approximately 31 minutes Janes Torres Jan 21, 2020 12:48
--- NOTE | 2020-01-21 14:53 | NUR ---
CASE MANAGEMENT:INITIAL REVIEW 01/20/20 54 YR OLD FEMALE BIBA FROM [facility] CC;FLU LIKE SYMPTOMS SI;COVID-19 PNEUMONIA. ALTERED MENTAL STATUS. ELEVATED D-DIMER. 98.8 74 18 96/63 94% ON RA NA 135 BUN 23 AST 40 AMMONIA 44 LDH 273 CRP 1.9 ALB 3.0 D-DIMER >35.20 COVID RAPID - POSITIVE CXR ~ Evidence of old granulomatous disease. No acute process . IS;IVF NS BOLUS X2 VANCOMYCIN IV CEFEPIME IV ADMITTED TO MED SURG MED SURG STATUS CASE MANAGEMENT:CONCURRENT REVIEW 01/21/20 SI;COVID INFECTION. HIV. ANEMIA. AMS. RLL INFILTRATE. 98.6 86 18 115/68 98% ON RA IS;LOVENOX SQ Q12 BACTRIM PO 3XWEEK MED SURG STATUS DCP;FROM [facility]
[2020-01-21 16:00] VITALS: BP 105/70
[2020-01-21] MEDS ORDERED: VITAMIN B125000 MCG PO (17:43)
[2020-01-21] MEDS ORDERED: CRANBERRY450 M5 PO (17:43)
[2020-01-21] MEDS ORDERED: ACETAMINOPHEN500 M3 ORAL (17:43)
[2020-01-21] MEDS ORDERED: BACTRIM DS TAB1 EAC1 ORAL (17:43)
[2020-01-21] MEDS ORDERED: BISACODYL10 M1 RC (17:43)
[2020-01-21] MEDS ORDERED: ACETAMINOPHEN325 M1 ORAL (17:43)
--- NOTE | 2020-01-21 19:25 | NUR ---
NURSE HAND-OFF: Important Events on Shift:Refused venous duplex Patient Status: stable Diet: regular Pending Orders: venous duplex Pending Results/Labs:n/a Pending MD notification:n/a Latest Vital Signs: Temperature 97.0 , Pulse 75 , B/P 105 /70 , Respiratory Rate 19 , O2 SAT 99 , Room Air, O2 Flow Rate . Vital Sign Comment: stable Latest Gardner Fall Score: 45 Fall Risk: High Risk Safety Measures: Call light Within Reach, Bed Alarm Zone 1, Side Rails Side Rails x2, Bed position Low and Locked. Fall Precautions: Yellow Socks Yellow Gown Door Sign Patient Fall Education Report given to KAILEY Waldron.
[2020-01-21 20:00] VITALS: BP 101/68
--- NOTE | 2020-01-21 20:00 | NUR ---
NURSE NOTES: RECEIVED PATIENT AWAKE, SITTING IN CHAIR WATCHING TELEVISION/WEARING STREET CLOTHES. ALERT/ORIENTED, CONFUSED, DENIES PAIN. NO SIGNS AND SYMPTOMS OF ACUTE CARDIO RESPIRATORY DISTRESS/SHORTNESS OF BREATH, DENIES CHEST PAIN, NO PERIPHERAL EDEMA NOTED. IV INTACT TO RIGHT AC/GAUGE 22/LEFT FOREARM GAUGE 22, SALINE LOCK, NO REDNESS/SWELLING NOTED. NO COMPLAINTS OF GI DISCOMFORT, NO N/V/D, BATHROOM PRIVILEGES. ENCOURAGED PATIENT TO UTILIZE CALL LIGHT FOR ASSISTANCE, VERBALIZED UNDERSTANDING. BED IN LOWEST POSITION FOR SAFETY. FREQUENT ROUNDING FOR SAFETY/NEEDS, CONTINUE WITH CURRENT PLAN OF CARE. NAD.
--- NOTE | 2020-01-21 21:38 | General Progress Note ---
Subjective ROS Limited/Unobtainable: Yes Allergies: Coded Allergies: LAMIVUDINE (Verified Allergy, Unknown, 01/19/20) RISPERIDONE (Verified Allergy, Unknown, 01/19/20) Objective Last 24 Hour Vital Signs Date Time Temp Pulse Resp B/P (MAP) Pulse Ox O2 Delivery O2 Flow Rate FiO2 01/21/20 16:00 97.0 75 19 105/70 (82) 99 01/21/20 12:00 98.2 80 18 109/70 (83) 98 01/21/20 09:00 Room Air 01/21/20 08:00 97.6 76 19 115/68 (84) 99 01/21/20 04:00 98.6 82 18 108/76 (87) 98 01/21/20 00:00 98.6 86 18 108/66 (80) 98 Intake and Output 01/20/20 01/21/20 19:00 07:00 Intake Total 500 ml 120 ml Balance 500 ml 120 ml Intake Oral 300 ml 120 ml Other 200 ml # Voids 2 3 Laboratory Tests 01/21/20 06:05: Sodium Level 138, Potassium Level 3.5, Chloride Level 107, Carbon Dioxide Level 24, Anion Gap 7, Blood Urea Nitrogen 22H, Creatinine 1.0, Estimat Glomerular Filtration Rate 57.6, Glucose Level 90, Calcium Level 8.3L Height (Feet): 5 Height (Inches): 0.00 Weight (Pounds): 110 Assessment/Plan Problem List: (1) Elevated d-dimer ICD Codes: R79.89 - Other specified abnormal findings of blood chemistry SNOMED: 164954007 (2) Pneumonia due to COVID-19 virus ICD Codes: U07.1 - COVID-19; J12.89 - Other viral pneumonia SNOMED: 934098691835854031 (3) AMS (altered mental status) ICD Codes: R41.82 - Altered mental status, unspecified SNOMED: 821016622 Status: progressing Assessment/Plan: resp insuff afebrile prn supportive rx pna Rach Gallegos MD Jan 21, 2020 21:38
[2020-01-22] VITALS (7 sets, daily range): BP systolic 108–122; BP diastolic 61–78
[2020-01-22 07:06] LABS: HEMATOCRIT 30.1 % (37.0-47.0); HEMOGLOBIN 10.8 G/DL (12.0-16.0); MEAN CORPUSCULAR VOLUME 88 FL (80-99); PLATELET COUNT 232 K/UL (150-450); RED BLOOD COUNT 3.42 M/UL (4.20-5.40); RED CELL DISTRIBUTION WIDTH 14.2 % (11.6-14.8); WHITE BLOOD COUNT 6.4 K/UL (4.8-10.8)
[2020-01-22 07:14] LABS: CALCIUM 8.5 MG/DL (8.5-10.1); CREATININE 1.1 MG/DL (0.55-1.30); POTASSIUM 3.6 MMOL/L (3.5-5.1)
--- NOTE | 2020-01-22 07:28 | NUR ---
NURSE HAND-OFF: Important Events on Shift: PATIENT REFUSED VENOUS DUPLEX/BLE'S Patient Status: [STABLE] Diet: [REGULAR] Pending Orders: [AM LABS, CBC/BMP 01/21-01/23] Pending Results/Labs:[] Pending MD notification:[] Latest Vital Signs: Temperature 97.3 , Pulse 87 , B/P 114 /69 , Respiratory Rate 18 , O2 SAT 97 , Room Air, O2 Flow Rate . Vital Sign Comment: [STABLE, AFEBRILE] Latest Gardner Fall Score: 45 Fall Risk: High Risk Safety Measures: Call light Within Reach, Bed Alarm Zone 1, Side Rails Side Rails x2, Bed position Low and Locked. Fall Precautions: Yellow Socks Yellow Gown Door Sign Patient Fall Education Report given to [KAILEY CARDONA].
--- NOTE | 2020-01-22 07:30 | NUR ---
NURSE NOTES: Pt is awake and sitting in her bed. pt finished eating breakfast. talks to herself. remains calm and quiet. provided reality orientation. respiration is even and unlabored on room air. no coughing episodes noted at this time. call light is placed within reach.
--- NOTE | 2020-01-22 08:12 | Pulmonology Progress Note ---
Subjective ROS Limited/Unobtainable: Yes Interval Events: none major Constitutional: Reports: no symptoms Respiratory: Reports: no symptoms Cardiovascular: Reports: no symptoms Gastrointestinal/Abdominal: Reports: no symptoms Allergies: Coded Allergies: LAMIVUDINE (Verified Allergy, Unknown, 01/19/20) RISPERIDONE (Verified Allergy, Unknown, 01/19/20) Objective Last 24 Hour Vital Signs Date Time Temp Pulse Resp B/P (MAP) Pulse Ox O2 Delivery O2 Flow Rate FiO2 01/22/20 04:00 97.3 87 18 114/69 (84) 97 01/22/20 00:00 97.9 84 18 109/74 (86) 96 01/21/20 21:00 Room Air 01/21/20 20:00 97.5 82 18 101/68 (79) 99 01/21/20 16:00 97.0 75 19 105/70 (82) 99 01/21/20 12:00 98.2 80 18 109/70 (83) 98 01/21/20 09:00 Room Air Intake and Output 01/21/20 01/22/20 19:00 07:00 Intake Total 400 ml 360 ml Balance 400 ml 360 ml Intake Oral 300 ml 360 ml Other 100 ml # Voids 3 2 Objective 01/22/2020 sitting up in bed facing the window; NAD 01/21/2020 watching tv in a chair; appears apathetic General Appearance: WD/WN, no acute distress HEENT: normocephalic Respiratory: chest wall non-tender Cardiovascular: normal rate, regular rhythm, no JVD Abdomen: soft, non tender Extremities: no edema Neurologic: alert Microbiology Date/Time Source Procedure Growth Status 01/19/20 23:00 Rectum VRE Culture - Final NO VANCOMYCIN RESISTANT ENTEROCOCCUS ... Complete 01/19/20 23:00 Rectum - Final NO CARBAPENEM-RESISTANT ENTEROBACTERI... Complete 01/19/20 23:00 Nasal Nares MRSA Culture - Final NO METHICILLIN RESISTANT STAPH AUREUS... Complete 01/19/20 13:45 Blood Blood Culture - Preliminary NO GROWTH AFTER 48 HOURS Resulted 01/19/20 13:30 Blood Blood Culture - Preliminary NO GROWTH AFTER 48 HOURS Resulted 01/19/20 11:30 Nasopharynx SARS-CoV-2 RdRp Gene Assay - Final Complete Laboratory Tests 01/22/20 05:30: White Blood Count 6.4, Red Blood Count 3.42L, Hemoglobin 10.8L, Hematocrit 30.1L , Mean Corpuscular Volume 88, Mean Corpuscular Hemoglobin 31.6H, Mean Corpuscular Hemoglobin Concent 35.9, Red Cell Distribution Width 14.2, Platelet Count 232, Mean Platelet Volume 5.8L, Neutrophils (%) (Auto) , Lymphocytes (%) (Auto) , Monocytes (%) (Auto) , Eosinophils (%) (Auto) , Basophils (%) (Auto) , Neutrophils % (Manual) [Pending], Lymphocytes % (Manual) [Pending], Platelet Estimate [Pending], Platelet Morphology [Pending], Sodium Level 135L, Potassium Level 3.6, Chloride Level 105, Carbon Dioxide Level 23, Anion Gap 7, Blood Urea Nitrogen 21H, Creatinine 1.1, Estimat Glomerular Filtration Rate 51.6, Glucose Level 91, Calcium Level 8.5 Current Medications Medications (Trade) Dose Ordered Sig/Gaurav Route PRN Reason Start Time Stop Time Status Last Admin Dose Admin Acetaminophen (Tylenol) 500 mg Q4H PRN ORAL Mild Pain (Pain Scale 1-3) 01/19/20 21:30 02/18/20 21:29 Bisacodyl (Dulcolax) 10 mg DAILYPRN PRN RECTAL Constipation 01/19/20 21:30 04/18/20 21:29 Cyanocobalamin (Vitamin B-12) 500 mcg DAILY ORAL 01/20/20 09:00 02/19/20 08:59 01/21/20 08:10 Docusate Sodium (Colace) 200 mg DAILY ORAL 01/20/20 09:00 02/19/20 08:59 01/21/20 08:09 Enoxaparin Sodium (Lovenox) 50 mg EVERY 12 HOURS SUBQ 01/20/20 21:00 04/19/20 20:59 01/21/20 21:27 Ibuprofen (Advil) 200 mg Q4H PRN ORAL persistent headache 01/19/20 21:15 02/18/20 21:14 Magnesium Hydroxide (Mom) 30 ml DAILYPRN PRN ORAL Constipation 01/19/20 21:30 02/18/20 21:29 Multivitamins (Multivitamins) 1 tab DAILY ORAL 01/20/20 09:00 02/19/20 08:59 01/21/20 08:10 Patient Own Medication (Patient's Own Med) 1 ea DAILY ORAL 01/20/20 14:00 02/19/20 13:59 01/21/20 08:09 Polyethylene Glycol (Miralax) 17 gm DAILY PRN ORAL Constipation 01/19/20 21:30 02/18/20 21:29 Trimethoprim/ Sulfamethoxazole (Bactrim-DS) 1 tab 3XW ORAL 01/21/20 09:00 01/28/20 08:59 01/21/20 08:10 Vitamin B Complex (Vitamin B Complex) 1 tab DAILY ORAL 01/20/20 09:00 04/19/20 08:59 01/21/20 08:09 Vitamin D (Vitamin D) 5,000 intlu DAILY ORAL 01/20/20 09:00 02/19/20 08:59 01/21/20 08:09 Assessment/Plan Assessment/Plan 1. COVID-19 pneumonia. - pt in isolation - Decadron added - Defer the use of remdesivir to ID specialist. - Oxygen prn - Saturating 97% on RA 2. Elevated inflammatory markers with high D-dimer. - Lovenox added - Was scheduled for venous duplex of legs 01/20/2020 but pt declined, reason unable to be obtained per RN - Today pt refuses leg swelling, pain, or chest pain, SOB 3. Right lower lobe infiltrate. 4. HIV of unknown stage - Biktarvy added 5. History of liver disease. 01/19/2020 CXR: calcified granuloma in the right midlung We will follow carefully. The care for this patient was discussed with my supervising physician Seen and examined by Dr. Perdomo as well Time spent for this case was approximately 31 minutes Janes Torres Jan 22, 2020 08:12
[2020-01-22] MEDS: Enoxaparin 60mg Inj SUBQ SCH ×2 (09:00→21:18)
[2020-01-22] MEDS: Vitamin D 1000 IU Tab ORAL SCH (09:26)
[2020-01-22] MEDS: Vitamin B Complex Tab ORAL SCH (09:26)
[2020-01-22] MEDS: Patient's Own Med - BIKTARVY 50-200-25MG TAB ORAL SCH (09:26)
[2020-01-22] MEDS: Docusate 100mg cap ORAL SCH (09:26)
[2020-01-22] MEDS: Vitamin B-12 500mcg tab ORAL SCH (09:27)
--- NOTE | 2020-01-22 14:08 | NUR ---
CASE MANAGEMENT:REVIEW SI;COVID-19 PNEUMONIA. RESPIRATORY INSUFFICIENCY. Hx; LIVER DISEASE. HIV. 97.5 87 18 101/68 96% ON RA NA 135 BUN 21 IS;LOVENOX SQ Q12 VIT D PO QD CYANOCOBALAMIN PO QD MED SURG STATUS DCP;FROM [facility]
--- NOTE | 2020-01-22 17:00 | General Progress Note ---
Subjective ROS Limited/Unobtainable: Yes Allergies: Coded Allergies: LAMIVUDINE (Verified Allergy, Unknown, 01/19/20) RISPERIDONE (Verified Allergy, Unknown, 01/19/20) Objective Last 24 Hour Vital Signs Date Time Temp Pulse Resp B/P (MAP) Pulse Ox O2 Delivery O2 Flow Rate FiO2 01/22/20 16:00 97.8 80 18 108/61 (77) 98 01/22/20 12:00 98.2 86 19 122/65 (84) 98 01/22/20 09:00 Room Air 01/22/20 08:00 98.1 80 18 118/71 (87) 96 01/22/20 04:00 97.3 87 18 114/69 (84) 97 01/22/20 00:00 97.9 84 18 109/74 (86) 96 01/21/20 21:00 Room Air 01/21/20 20:00 97.5 82 18 101/68 (79) 99 Intake and Output 01/21/20 01/22/20 19:00 07:00 Intake Total 400 ml 360 ml Balance 400 ml 360 ml Intake Oral 300 ml 360 ml Other 100 ml # Voids 3 2 Laboratory Tests 01/22/20 05:30: White Blood Count 6.4, Red Blood Count 3.42L, Hemoglobin 10.8L, Hematocrit 30.1L , Mean Corpuscular Volume 88, Mean Corpuscular Hemoglobin 31.6H, Mean Corpuscular Hemoglobin Concent 35.9, Red Cell Distribution Width 14.2, Platelet Count 232, Mean Platelet Volume 5.8L, Neutrophils (%) (Auto) , Lymphocytes (%) (Auto) , Monocytes (%) (Auto) , Eosinophils (%) (Auto) , Basophils (%) (Auto) , Differential Total Cells Counted 100, Neutrophils % (Manual) 22L, Lymphocytes % (Manual) 71H, Monocytes % (Manual) 7, Eosinophils % (Manual) 0, Basophils % (Manual) 0, Band Neutrophils 0, Platelet Estimate Adequate, Platelet Morphology Normal, Anisocytosis 1+, Sodium Level 135L, Potassium Level 3.6, Chloride Level 105, Carbon Dioxide Level 23, Anion Gap 7, Blood Urea Nitrogen 21H, Creatinine 1.1, Estimat Glomerular Filtration Rate 51.6, Glucose Level 91, Calcium Level 8.5 Height (Feet): 5 Height (Inches): 0.00 Weight (Pounds): 110 Assessment/Plan Problem List: (1) Elevated d-dimer ICD Codes: R79.89 - Other specified abnormal findings of blood chemistry SNOMED: 758382846 (2) Pneumonia due to COVID-19 virus ICD Codes: U07.1 - COVID-19; J12.89 - Other viral pneumonia SNOMED: 249902186043107497 (3) AMS (altered mental status) ICD Codes: R41.82 - Altered mental status, unspecified SNOMED: 273308055 Status: progressing Assessment/Plan: no ACUTE EVENTS prn supportive rx no fever prn supportive rx pna Rach Gallegos MD Jan 22, 2020 17:00
--- NOTE | 2020-01-22 19:13 | NUR ---
NURSE HAND-OFF: Important Events on Shift:n/a Patient Status: stable Diet: regular Pending Orders: n/a Pending Results/Labs:n/a Pending MD notification:n/a Latest Vital Signs: Temperature 97.8 , Pulse 80 , B/P 108 /61 , Respiratory Rate 18 , O2 SAT 98 , Room Air, O2 Flow Rate . Vital Sign Comment: stable Latest Gardner Fall Score: 45 Fall Risk: High Risk Safety Measures: Call light Within Reach, Bed Alarm Zone 1, Side Rails Side Rails x2, Bed position Low and Locked. Fall Precautions: Yellow Socks Yellow Gown Door Sign Patient Fall Education Report given to .
--- NOTE | 2020-01-22 19:20 | NUR ---
NURSE NOTES: Patient in bed, sleeping at this time but easily arousable. On room air with no signs of distress or SOB. Bed locked and in lowest position. Call light in reach. Will continue plan of care.
[2020-01-23 04:00] VITALS: BP 115/72
[2020-01-23 06:06] LABS: HEMATOCRIT 30.7 % (37.0-47.0); HEMOGLOBIN 10.6 G/DL (12.0-16.0); MEAN CORPUSCULAR VOLUME 92 FL (80-99); PLATELET COUNT 227 K/UL (150-450); RED BLOOD COUNT 3.35 M/UL (4.20-5.40); RED CELL DISTRIBUTION WIDTH 13.8 % (11.6-14.8); WHITE BLOOD COUNT 4.9 K/UL (4.8-10.8)
[2020-01-23 06:35] LABS: CALCIUM 8.7 MG/DL (8.5-10.1); CREATININE 1.1 MG/DL (0.55-1.30); POTASSIUM 3.3 MMOL/L (3.5-5.1)
--- NOTE | 2020-01-23 06:50 | Hematology/Onc Progress Note ---
Assessment/Plan Assessment/Plan Assessment and Recs # Elevated ddimer, in this case is very likely due to covid requires minimal anticoag --> duplex lower legs has been ordered-->neg --> no e/o pe at this time --> per pulm management # Pneumonia due to COVID-19 virus --> abx and isolation precuations --> consider steriods # AMS (altered mental status) --> likely is due to above # Dehydration --> goal of euvolemia as per renal # Early pneumonia right lower lobe --> abx # Granulmatous disease --> per pulm # Dvt ppx lovenox sq Appreciate consultation and dw RN Subjective Constitutional: Denies: no symptoms, chills, fever, malaise, weakness, other HEENT: Denies: no symptoms, eye pain, blurred vision, tearing, double vision, ear pain, ear discharge, nose pain, nose congestion, throat pain, throat swelling, mouth pain, mouth swelling, other Cardiovascular: Denies: no symptoms, chest pain, edema, irregular heart rate, lightheadedness, palpitations, syncope, other Respiratory: Denies: no symptoms, cough, shortness of breath, SOB with excertion, SOB at rest, sputum, wheezing, other Genitourinary: Denies: no symptoms, burning, discharge, frequency, flank pain, hematuria, incontinence, pain, urgency, other Neurologic/Psychiatric: Denies: no symptoms, anxiety, depressed, emotional problems, headache, numbness, paresthesia, pre-existing deficit, seizure, tingling, tremors, weakness, other Endocrine: Denies: no symptoms, excessive sweating, flushing, intolerance to cold, intolerance to heat, increased hunger, increased thirst, increased urine, unexplained weight gain, unexplained weight loss, other Hematologic/Lymphatic: Denies: no symptoms, anemia, easy bleeding, easy bruising, adenopathy, other Allergies: Coded Allergies: LAMIVUDINE (Verified Allergy, Unknown, 01/19/20) RISPERIDONE (Verified Allergy, Unknown, 01/19/20) Subjective 01/20 confused no bleeding or chills noted, cbc is reviewed 01/22 sleeping, on ra, no night sweats, meds reviewed Objective Objective Current Medications Medications (Trade) Dose Ordered Sig/Gaurav Route PRN Reason Start Time Stop Time Status Last Admin Dose Admin Acetaminophen (Tylenol) 500 mg Q4H PRN ORAL Mild Pain (Pain Scale 1-3) 01/19/20 21:30 02/18/20 21:29 Bisacodyl (Dulcolax) 10 mg DAILYPRN PRN RECTAL Constipation 01/19/20 21:30 04/18/20 21:29 Cyanocobalamin (Vitamin B-12) 500 mcg DAILY ORAL 01/20/20 09:00 02/19/20 08:59 01/22/20 09:27 Docusate Sodium (Colace) 200 mg DAILY ORAL 01/20/20 09:00 02/19/20 08:59 01/22/20 09:26 Enoxaparin Sodium (Lovenox) 50 mg EVERY 12 HOURS SUBQ 01/20/20 21:00 04/19/20 20:59 01/22/20 21:18 Ibuprofen (Advil) 200 mg Q4H PRN ORAL persistent headache 01/19/20 21:15 02/18/20 21:14 Magnesium Hydroxide (Mom) 30 ml DAILYPRN PRN ORAL Constipation 01/19/20 21:30 02/18/20 21:29 Multivitamins (Multivitamins) 1 tab DAILY ORAL 01/20/20 09:00 02/19/20 08:59 01/22/20 09:25 Patient Own Medication (Patient's Own Med) 1 ea DAILY ORAL 01/20/20 14:00 02/19/20 13:59 01/22/20 09:26 Polyethylene Glycol (Miralax) 17 gm DAILY PRN ORAL Constipation 01/19/20 21:30 02/18/20 21:29 Trimethoprim/ Sulfamethoxazole (Bactrim-DS) 1 tab 3XW ORAL 01/21/20 09:00 01/28/20 08:59 01/21/20 08:10 Vitamin B Complex (Vitamin B Complex) 1 tab DAILY ORAL 01/20/20 09:00 04/19/20 08:59 01/22/20 09:26 Vitamin D (Vitamin D) 5,000 intlu DAILY ORAL 01/20/20 09:00 02/19/20 08:59 01/22/20 09:26 Last 24 Hour Vital Signs Date Time Temp Pulse Resp B/P (MAP) Pulse Ox O2 Delivery O2 Flow Rate FiO2 01/23/20 04:00 99.1 81 18 115/72 (86) 95 01/22/20 23:42 98.9 76 18 108/69 (82) 96 01/22/20 21:00 Room Air 01/22/20 20:00 99.1 80 18 113/78 (90) 96 01/22/20 16:00 97.8 80 18 108/61 (77) 98 01/22/20 12:00 98.2 86 19 122/65 (84) 98 01/22/20 09:00 Room Air 01/22/20 08:00 98.1 80 18 118/71 (87) 96 01/22/20 04:00 97.3 87 18 114/69 (84) 97 01/22/20 00:00 97.9 84 18 109/74 (86) 96 01/21/20 21:00 Room Air 01/21/20 20:00 97.5 82 18 101/68 (79) 99 01/21/20 16:00 97.0 75 19 105/70 (82) 99 01/21/20 12:00 98.2 80 18 109/70 (83) 98 01/21/20 09:00 Room Air 01/21/20 08:00 97.6 76 19 115/68 (84) 99 Intake and Output 01/22/20 01/23/20 19:00 07:00 Intake Total 420 ml 400 ml Balance 420 ml 400 ml Intake Oral 420 ml 400 ml # Voids 3 2 Labs Test 01/21/20 06:05 01/22/20 05:30 01/23/20 04:40 Sodium Level 138 MMOL/L (136-145) 135 MMOL/L (136-145) Potassium Level 3.5 MMOL/L (3.5-5.1) 3.6 MMOL/L (3.5-5.1) Chloride Level 107 MMOL/L (98-107) 105 MMOL/L (98-107) Carbon Dioxide Level 24 MMOL/L (21-32) 23 MMOL/L (21-32) Anion Gap 7 mmol/L (5-15) 7 mmol/L (5-15) Blood Urea Nitrogen 22 mg/dL (7-18) 21 mg/dL (7-18) Creatinine 1.0 MG/DL (0.55-1.30) 1.1 MG/DL (0.55-1.30) Estimat Glomerular Filtration Rate 57.6 mL/min (>60) 51.6 mL/min (>60) Glucose Level 90 MG/DL (74-106) 91 MG/DL (74-106) Calcium Level 8.3 MG/DL (8.5-10.1) 8.5 MG/DL (8.5-10.1) White Blood Count 6.4 K/UL (4.8-10.8) 4.9 K/UL (4.8-10.8) Red Blood Count 3.42 M/UL (4.20-5.40) 3.35 M/UL (4.20-5.40) Hemoglobin 10.8 G/DL (12.0-16.0) 10.6 G/DL (12.0-16.0) Hematocrit 30.1 % (37.0-47.0) 30.7 % (37.0-47.0) Mean Corpuscular Volume 88 FL (80-99) 92 FL (80-99) Mean Corpuscular Hemoglobin 31.6 PG (27.0-31.0) 31.7 PG (27.0-31.0) Mean Corpuscular Hemoglobin Concent 35.9 G/DL (32.0-36.0) 34.5 G/DL (32.0-36.0) Red Cell Distribution Width 14.2 % (11.6-14.8) 13.8 % (11.6-14.8) Platelet Count 232 K/UL (150-450) 227 K/UL (150-450) Mean Platelet Volume 5.8 FL (6.5-10.1) 6.4 FL (6.5-10.1) Neutrophils (%) (Auto) % (45.0-75.0) % (45.0-75.0) Lymphocytes (%) (Auto) % (20.0-45.0) % (20.0-45.0) Monocytes (%) (Auto) % (1.0-10.0) % (1.0-10.0) Eosinophils (%) (Auto) % (0.0-3.0) % (0.0-3.0) Basophils (%) (Auto) % (0.0-2.0) % (0.0-2.0) Differential Total Cells Counted 100 Neutrophils % (Manual) 22 % (45-75) Lymphocytes % (Manual) 71 % (20-45) Monocytes % (Manual) 7 % (1-10) Eosinophils % (Manual) 0 % (0-3) Basophils % (Manual) 0 % (0-2) Band Neutrophils 0 % (0-8) Platelet Estimate Adequate Platelet Morphology Normal Anisocytosis 1+ Height (Feet): 5 Height (Inches): 0.00 Weight (Pounds): 110 Objective Physical Exam Vitals: reviewed, abnormal - hypoxic Gen: no apparent distress HEENT: normocephalic, atraumatic, dry mucus membranes Respiratory: no respiratory distress Cardiovascular: regular rate, rhythm Gastrointestinal: non tender, soft Rectal: deferred Neurologic: other - Disoriented and confused Skin: no rash Lymphatic: no adenopathy Gerald Win MD Jan 23, 2020 06:50
--- NOTE | 2020-01-23 06:50 | NUR ---
NURSE HAND-OFF: Important Events on Shift: No events Patient Status: Stable Diet: Reg Pending Orders: [place] Duplex Pending Results/Labs: BMP, CBC Pending MD notification: N/A Latest Vital Signs: Temperature 99.1 , Pulse 81 , B/P 115 /72 , Respiratory Rate 18 , O2 SAT 95 , Room Air, O2 Flow Rate . Vital Sign Comment: N/A Latest Gardner Fall Score: 45 Fall Risk: High Risk Safety Measures: Call light Within Reach, Bed Alarm Zone 1, Side Rails Side Rails x2, Bed position Low and Locked. Fall Precautions: Yellow Socks Yellow Gown Door Sign Patient Fall Education Addendum: 01/23/20 at 0658 by MARIA EUGENIA KWAN RN Left message for Dr. Gallegos regarding Potassium 3.3
--- NOTE | 2020-01-23 06:58 | NUR ---
NURSE NOTES: Left message for Dr. Gallegos regarding Potassium 3.3. Awaiting call back.
--- NOTE | 2020-01-23 07:33 | NUR ---
NURSE NOTES: Patient awake, alert x2, confused and forget-full; of room air, on sign of distress and shortness of breath; no sing of chest pain; IV Right AC and Left For-Arm flushes well; side rails up x2, breaks engaged, bed at lowest position; patient ambulatory; call light within reach; will keep monitoring.
[2020-01-23 08:00] VITALS: BP 102/71
[2020-01-23] MEDS: Patient's Own Med - BIKTARVY 50-200-25MG TAB ORAL SCH (08:37)
[2020-01-23] MEDS: Enoxaparin 60mg Inj SUBQ SCH ×2 (08:37→20:24)
[2020-01-23] MEDS: Vitamin B-12 500mcg tab ORAL SCH (08:38)
[2020-01-23] MEDS: Vitamin B Complex Tab ORAL SCH (08:38)
[2020-01-23] MEDS: Vitamin D 1000 IU Tab ORAL SCH (08:38)
[2020-01-23] MEDS: Docusate 100mg cap ORAL SCH (08:38)
--- NOTE | 2020-01-23 09:10 | Pulmonology Progress Note ---
Subjective ROS Limited/Unobtainable: Yes Interval Events: 01/23/2020 am labs K 3.3 s/p 20 mEq of K Constitutional: Reports: no symptoms; Denies: fever, chills, fatigue, anorexia, drenching sweats, other Respiratory: Reports: no symptoms Cardiovascular: Reports: no symptoms Gastrointestinal/Abdominal: Reports: no symptoms Allergies: Coded Allergies: LAMIVUDINE (Verified Allergy, Unknown, 01/19/20) RISPERIDONE (Verified Allergy, Unknown, 01/19/20) Objective Last 24 Hour Vital Signs Date Time Temp Pulse Resp B/P (MAP) Pulse Ox O2 Delivery O2 Flow Rate FiO2 01/23/20 08:00 98.2 83 18 102/71 (81) 96 01/23/20 04:00 99.1 81 18 115/72 (86) 95 01/22/20 23:42 98.9 76 18 108/69 (82) 96 01/22/20 21:00 Room Air 01/22/20 20:00 99.1 80 18 113/78 (90) 96 01/22/20 16:00 97.8 80 18 108/61 (77) 98 01/22/20 12:00 98.2 86 19 122/65 (84) 98 Intake and Output 01/22/20 01/23/20 19:00 07:00 Intake Total 420 ml 400 ml Balance 420 ml 400 ml Intake Oral 420 ml 400 ml # Voids 3 2 Objective 01/23/2020 sitting up in bed watching tx; soft spoken 01/22/2020 sitting up in bed facing the window; NAD 01/21/2020 watching tv in a chair; appears apathetic General Appearance: WD/WN, no acute distress HEENT: normocephalic Respiratory: chest wall non-tender Cardiovascular: normal rate, regular rhythm, no JVD Abdomen: soft, non tender Extremities: no edema Neurologic: alert Laboratory Tests 01/23/20 04:40: White Blood Count 4.9, Red Blood Count 3.35L, Hemoglobin 10.6L, Hematocrit 30.7L , Mean Corpuscular Volume 92, Mean Corpuscular Hemoglobin 31.7H, Mean Corpuscular Hemoglobin Concent 34.5, Red Cell Distribution Width 13.8, Platelet Count 227, Mean Platelet Volume 6.4L, Neutrophils (%) (Auto) , Lymphocytes (%) (Auto) , Monocytes (%) (Auto) , Eosinophils (%) (Auto) , Basophils (%) (Auto) , Differential Total Cells Counted 100, Neutrophils % (Manual) 27L, Lymphocytes % (Manual) 61H, Monocytes % (Manual) 11H, Eosinophils % (Manual) 1, Basophils % (Manual) 0, Band Neutrophils 0, Platelet Estimate Adequate, Platelet Morphology Normal, Anisocytosis 1+, Sodium Level 135L, Potassium Level 3.3L, Chloride Level 105, Carbon Dioxide Level 24, Anion Gap 6, Blood Urea Nitrogen 25H, Creatinine 1.1, Estimat Glomerular Filtration Rate 51.6, Glucose Level 97, Calcium Level 8.7 Current Medications Medications (Trade) Dose Ordered Sig/Gaurav Route PRN Reason Start Time Stop Time Status Last Admin Dose Admin Acetaminophen (Tylenol) 500 mg Q4H PRN ORAL Mild Pain (Pain Scale 1-3) 01/19/20 21:30 02/18/20 21:29 Bisacodyl (Dulcolax) 10 mg DAILYPRN PRN RECTAL Constipation 01/19/20 21:30 04/18/20 21:29 Cyanocobalamin (Vitamin B-12) 500 mcg DAILY ORAL 01/20/20 09:00 02/19/20 08:59 01/23/20 08:38 Docusate Sodium (Colace) 200 mg DAILY ORAL 01/20/20 09:00 02/19/20 08:59 01/23/20 08:38 Enoxaparin Sodium (Lovenox) 50 mg EVERY 12 HOURS SUBQ 01/20/20 21:00 04/19/20 20:59 01/23/20 08:37 Ibuprofen (Advil) 200 mg Q4H PRN ORAL persistent headache 01/19/20 21:15 02/18/20 21:14 Magnesium Hydroxide (Mom) 30 ml DAILYPRN PRN ORAL Constipation 01/19/20 21:30 02/18/20 21:29 Multivitamins (Multivitamins) 1 tab DAILY ORAL 01/20/20 09:00 02/19/20 08:59 01/23/20 08:38 Patient Own Medication (Patient's Own Med) 1 ea DAILY ORAL 01/20/20 14:00 02/19/20 13:59 01/23/20 08:37 Polyethylene Glycol (Miralax) 17 gm DAILY PRN ORAL Constipation 01/19/20 21:30 02/18/20 21:29 Potassium Chloride 100 ml @ 100 mls/hr Q1H IVPB 01/23/20 09:00 01/23/20 10:59 01/23/20 08:38 Trimethoprim/ Sulfamethoxazole (Bactrim-DS) 1 tab 3XW ORAL 01/21/20 09:00 01/28/20 08:59 01/21/20 08:10 Vitamin B Complex (Vitamin B Complex) 1 tab DAILY ORAL 01/20/20 09:00 04/19/20 08:59 01/23/20 08:38 Vitamin D (Vitamin D) 5,000 intlu DAILY ORAL 01/20/20 09:00 02/19/20 08:59 01/23/20 08:38 Assessment/Plan Assessment/Plan 1. COVID-19 pneumonia. - pt in isolation - Decadron added - Defer the use of remdesivir to ID specialist. - Oxygen prn - Saturating 95% on RA 2. Elevated inflammatory markers with high D-dimer. - on Lovenox - Venous duplex of LE scheduled for today - Today pt refuses leg swelling, pain, or chest pain, SOB 3. Right lower lobe infiltrate. 4. HIV of unknown stage - on Biktarvy 5. History of liver disease. 01/19/2020 CXR: calcified granuloma in the right midlung I will follow carefully. The care for this patient was discussed with my supervising physician Seen and examined by Dr. Perdomo as well The history of Bhakti Fischer has been reviewed and management options for her have been examined and discussed by Domenic Perdomo. I have personally examined and interviewed the patient. Time spent for this case was approximately 31 minutes Janes Torres Jan 23, 2020 09:10 Domenic Perdomo MD Jan 23, 2020 16:47
[2020-01-23 12:00] VITALS: BP 100/68
--- NOTE | 2020-01-23 15:12 | Infectious Diseases Prog Note ---
Assessment/Plan Assessment/Plan IMPRESSION: COVID-19 disease, seems to be mild, HIV unknown stage, Anemia, Altered mental status. RECOMMENDATION: We will continue Biktarvy. We will continue Bactrim. Subjective ROS Limited/Unobtainable: Yes Constitutional: Reports: no symptoms Respiratory: Reports: no symptoms Allergies: Coded Allergies: LAMIVUDINE (Verified Allergy, Unknown, 01/19/20) RISPERIDONE (Verified Allergy, Unknown, 01/19/20) Objective Last 24 Hour Vital Signs Date Time Temp Pulse Resp B/P (MAP) Pulse Ox O2 Delivery O2 Flow Rate FiO2 01/23/20 12:00 99.5 82 18 100/68 (79) 98 01/23/20 09:00 Room Air 01/23/20 08:00 98.2 83 18 102/71 (81) 96 01/23/20 04:00 99.1 81 18 115/72 (86) 95 01/22/20 23:42 98.9 76 18 108/69 (82) 96 01/22/20 21:00 Room Air 01/22/20 20:00 99.1 80 18 113/78 (90) 96 01/22/20 16:00 97.8 80 18 108/61 (77) 98 Height (Feet): 5 Height (Inches): 0.00 Weight (Pounds): 110 General Appearance: no acute distress HEENT: mucous membranes moist Respiratory/Chest: lungs clear Cardiovascular: normal rate Abdomen: soft, non tender Extremities: no edema Neurologic/Psychiatric: alert, responsive, other - ambulatory Laboratory Tests Test 01/23/20 04:40 White Blood Count 4.9 K/UL (4.8-10.8) Red Blood Count 3.35 M/UL (4.20-5.40) L Hemoglobin 10.6 G/DL (12.0-16.0) L Hematocrit 30.7 % (37.0-47.0) L Mean Corpuscular Volume 92 FL (80-99) Mean Corpuscular Hemoglobin 31.7 PG (27.0-31.0) H Mean Corpuscular Hemoglobin Concent 34.5 G/DL (32.0-36.0) Red Cell Distribution Width 13.8 % (11.6-14.8) Platelet Count 227 K/UL (150-450) Mean Platelet Volume 6.4 FL (6.5-10.1) L Neutrophils (%) (Auto) % (45.0-75.0) Lymphocytes (%) (Auto) % (20.0-45.0) Monocytes (%) (Auto) % (1.0-10.0) Eosinophils (%) (Auto) % (0.0-3.0) Basophils (%) (Auto) % (0.0-2.0) Differential Total Cells Counted 100 Neutrophils % (Manual) 27 % (45-75) L Lymphocytes % (Manual) 61 % (20-45) H Monocytes % (Manual) 11 % (1-10) H Eosinophils % (Manual) 1 % (0-3) Basophils % (Manual) 0 % (0-2) Band Neutrophils 0 % (0-8) Platelet Estimate Adequate Platelet Morphology Normal Anisocytosis 1+ Sodium Level 135 MMOL/L (136-145) L Potassium Level 3.3 MMOL/L (3.5-5.1) L Chloride Level 105 MMOL/L (98-107) Carbon Dioxide Level 24 MMOL/L (21-32) Anion Gap 6 mmol/L (5-15) Blood Urea Nitrogen 25 mg/dL (7-18) H Creatinine 1.1 MG/DL (0.55-1.30) Estimat Glomerular Filtration Rate 51.6 mL/min (>60) Glucose Level 97 MG/DL (74-106) Calcium Level 8.7 MG/DL (8.5-10.1) Current Medications Medications (Trade) Dose Ordered Sig/Gaurav Route PRN Reason Start Time Stop Time Status Last Admin Dose Admin Acetaminophen (Tylenol) 500 mg Q4H PRN ORAL Mild Pain (Pain Scale 1-3) 01/19/20 21:30 02/18/20 21:29 Bisacodyl (Dulcolax) 10 mg DAILYPRN PRN RECTAL Constipation 01/19/20 21:30 04/18/20 21:29 Cyanocobalamin (Vitamin B-12) 500 mcg DAILY ORAL 01/20/20 09:00 02/19/20 08:59 01/23/20 08:38 Docusate Sodium (Colace) 200 mg DAILY ORAL 01/20/20 09:00 02/19/20 08:59 01/23/20 08:38 Enoxaparin Sodium (Lovenox) 50 mg EVERY 12 HOURS SUBQ 01/20/20 21:00 04/19/20 20:59 01/23/20 08:37 Ibuprofen (Advil) 200 mg Q4H PRN ORAL persistent headache 01/19/20 21:15 02/18/20 21:14 Magnesium Hydroxide (Mom) 30 ml DAILYPRN PRN ORAL Constipation 01/19/20 21:30 02/18/20 21:29 Multivitamins (Multivitamins) 1 tab DAILY ORAL 01/20/20 09:00 02/19/20 08:59 01/23/20 08:38 Patient Own Medication (Patient's Own Med) 1 ea DAILY ORAL 01/20/20 14:00 02/19/20 13:59 01/23/20 08:37 Polyethylene Glycol (Miralax) 17 gm DAILY PRN ORAL Constipation 01/19/20 21:30 02/18/20 21:29 Trimethoprim/ Sulfamethoxazole (Bactrim-DS) 1 tab 3XW ORAL 01/21/20 09:00 01/28/20 08:59 01/21/20 08:10 Vitamin B Complex (Vitamin B Complex) 1 tab DAILY ORAL 01/20/20 09:00 04/19/20 08:59 01/23/20 08:38 Vitamin D (Vitamin D) 5,000 intlu DAILY ORAL 01/20/20 09:00 02/19/20 08:59 01/23/20 08:38 Karl Henderson MD Jan 23, 2020 15:12
[2020-01-23 16:00] VITALS: BP 120/79
--- NOTE | 2020-01-23 19:09 | NUR ---
NURSE NOTES: Received patient on bed, awake and verbally responsive. albanian speaking. on room air. no sob. denies any pain or discomfort at the moment. ambulates. s/p kcl 10 meq x2 bags. iv access on the LFA and RAC, saline lock. reiterated to call and ask for assistance. call light and light button within easy reach. bed locked and in lowest position. will continue plan of care.
--- NOTE | 2020-01-23 19:17 | NUR ---
HAND-OFF: Report given to KAILEY Mathis.
[2020-01-23 20:00] VITALS: BP 113/69
--- NOTE | 2020-01-23 21:31 | General Progress Note ---
Subjective ROS Limited/Unobtainable: Yes Allergies: Coded Allergies: LAMIVUDINE (Verified Allergy, Unknown, 01/19/20) RISPERIDONE (Verified Allergy, Unknown, 01/19/20) Objective Last 24 Hour Vital Signs Date Time Temp Pulse Resp B/P (MAP) Pulse Ox O2 Delivery O2 Flow Rate FiO2 01/23/20 20:00 97.6 80 19 113/69 (84) 98 01/23/20 16:00 98.0 82 18 120/79 (93) 98 01/23/20 12:00 99.5 82 18 100/68 (79) 98 01/23/20 09:00 Room Air 01/23/20 08:00 98.2 83 18 102/71 (81) 96 01/23/20 04:00 99.1 81 18 115/72 (86) 95 01/22/20 23:42 98.9 76 18 108/69 (82) 96 Intake and Output 01/22/20 01/23/20 19:00 07:00 Intake Total 420 ml 400 ml Balance 420 ml 400 ml Intake Oral 420 ml 400 ml # Voids 3 2 Laboratory Tests 01/23/20 04:40: White Blood Count 4.9, Red Blood Count 3.35L, Hemoglobin 10.6L, Hematocrit 30.7L , Mean Corpuscular Volume 92, Mean Corpuscular Hemoglobin 31.7H, Mean Corpuscular Hemoglobin Concent 34.5, Red Cell Distribution Width 13.8, Platelet Count 227, Mean Platelet Volume 6.4L, Neutrophils (%) (Auto) , Lymphocytes (%) (Auto) , Monocytes (%) (Auto) , Eosinophils (%) (Auto) , Basophils (%) (Auto) , Differential Total Cells Counted 100, Neutrophils % (Manual) 27L, Lymphocytes % (Manual) 61H, Monocytes % (Manual) 11H, Eosinophils % (Manual) 1, Basophils % (Manual) 0, Band Neutrophils 0, Platelet Estimate Adequate, Platelet Morphology Normal, Anisocytosis 1+, Sodium Level 135L, Potassium Level 3.3L, Chloride Level 105, Carbon Dioxide Level 24, Anion Gap 6, Blood Urea Nitrogen 25H, Creatinine 1.1, Estimat Glomerular Filtration Rate 51.6, Glucose Level 97, Calcium Level 8.7 Height (Feet): 5 Height (Inches): 0.00 Weight (Pounds): 110 Assessment/Plan Problem List: (1) Elevated d-dimer ICD Codes: R79.89 - Other specified abnormal findings of blood chemistry SNOMED: 149116515 (2) Pneumonia due to COVID-19 virus ICD Codes: U07.1 - COVID-19; J12.89 - Other viral pneumonia SNOMED: 711165476266901941 (3) AMS (altered mental status) ICD Codes: R41.82 - Altered mental status, unspecified SNOMED: 339728780 Status: progressing Assessment/Plan: afebrile reviewed chart and labs not hypxic supportive rx pna improving Rach Gallegos MD Jan 23, 2020 21:31
[2020-01-24] VITALS: BP 110/70
[2020-01-24 04:00] VITALS: BP 118/75
--- NOTE | 2020-01-24 06:08 | NUR ---
NURSE HAND-OFF: Important Events on Shift:SAFETY Patient Status: STABLE Diet: REGULAR Pending Orders: VENOUS DUPLEX Pending Results/Labs: Pending MD notification: Latest Vital Signs: Temperature 97.6 , Pulse 78 , B/P 118 /75 , Respiratory Rate 19 , O2 SAT 97 , Room Air, O2 Flow Rate . Vital Sign Comment: Latest Gardner Fall Score: 45 Fall Risk: High Risk Safety Measures: Call light Within Reach, Bed Alarm Zone 1, Side Rails Side Rails x2, Bed position Low and Locked. Fall Precautions: Yellow Socks Yellow Gown Door Sign Patient Fall Education Addendum: 01/24/20 at 0706 by Etta Mathis RN HAND-OFF: Report given to tanner livingston.
[2020-01-24 07:39] LABS: HEMATOCRIT 29.8 % (37.0-47.0); HEMOGLOBIN 10.4 G/DL (12.0-16.0); MEAN CORPUSCULAR VOLUME 89 FL (80-99); PLATELET COUNT 228 K/UL (150-450); RED BLOOD COUNT 3.33 M/UL (4.20-5.40); RED CELL DISTRIBUTION WIDTH 13.9 % (11.6-14.8); WHITE BLOOD COUNT 4.5 K/UL (4.8-10.8)
[2020-01-24 07:41] LABS: CALCIUM 8.2 MG/DL (8.5-10.1); POTASSIUM 3.6 MMOL/L (3.5-5.1)
[2020-01-24 08:00] VITALS: BP 108/64
--- NOTE | 2020-01-24 08:19 | NUR ---
NURSE NOTES received patient from KAILEY Saravia. patient in bed. Alert to name and time. verbally responsive. no respiratory distress noted on room air. no pain at this t time. skin intact. ambulatory. IV on RAC, LFA intact. flushed. droplet and contact isolation d/t +COVID. PPE at all times. bed in the lowest position and locked. call light within reach, will continue to provide plan of care.
[2020-01-24] MEDS: Vitamin B Complex Tab ORAL SCH (08:59)
[2020-01-24] MEDS: Vitamin D 1000 IU Tab ORAL SCH (08:59)
[2020-01-24] MEDS: Bactrim-DS 1 tab ORAL SCH (08:59)
[2020-01-24] MEDS: Docusate 100mg cap ORAL SCH (09:00)
[2020-01-24] MEDS: Patient's Own Med - BIKTARVY 50-200-25MG TAB ORAL SCH (09:00)
[2020-01-24] MEDS: Vitamin B-12 500mcg tab ORAL SCH (09:00)
[2020-01-24] MEDS: Enoxaparin 60mg Inj SUBQ SCH (09:01)
--- NOTE | 2020-01-24 10:35 | Pulmonology Progress Note ---
Subjective ROS Limited/Unobtainable: Yes Interval Events: none new Constitutional: Reports: no symptoms; Denies: fever, chills, fatigue, anorexia, drenching sweats, other Respiratory: Reports: no symptoms Cardiovascular: Reports: no symptoms Gastrointestinal/Abdominal: Reports: no symptoms Allergies: Coded Allergies: LAMIVUDINE (Verified Allergy, Unknown, 01/19/20) RISPERIDONE (Verified Allergy, Unknown, 01/19/20) Objective Last 24 Hour Vital Signs Date Time Temp Pulse Resp B/P (MAP) Pulse Ox O2 Delivery O2 Flow Rate FiO2 01/24/20 09:00 Room Air 01/24/20 08:00 97.8 86 18 108/64 (79) 96 01/24/20 04:00 97.6 78 19 118/75 (89) 97 01/24/20 00:00 97.9 82 20 110/70 (83) 99 01/23/20 21:00 Room Air 01/23/20 20:00 97.6 80 19 113/69 (84) 98 01/23/20 16:00 98.0 82 18 120/79 (93) 98 01/23/20 12:00 99.5 82 18 100/68 (79) 98 Intake and Output 01/23/20 01/24/20 19:00 07:00 Intake Total 500 ml 250 ml Balance 500 ml 250 ml Intake Oral 400 ml 250 ml IV Total 100 ml # Voids 4 3 Objective 01/24/2020 ambulating out of the restroom; unlabored breathing on RA 01/23/2020 sitting up in bed watching tx; soft spoken 01/22/2020 sitting up in bed facing the window; NAD 01/21/2020 watching tv in a chair; appears apathetic General Appearance: WD/WN, no acute distress HEENT: normocephalic Respiratory: chest wall non-tender Cardiovascular: normal rate, regular rhythm, no JVD Abdomen: soft, non tender Extremities: no edema Neurologic: alert Laboratory Tests 01/24/20 04:00: White Blood Count 4.5L, Red Blood Count 3.33L, Hemoglobin 10.4L, Hematocrit 29.8L, Mean Corpuscular Volume 89, Mean Corpuscular Hemoglobin 31.2H, Mean Corpuscular Hemoglobin Concent 34.9, Red Cell Distribution Width 13.9, Platelet Count 228, Mean Platelet Volume 5.9L, Neutrophils (%) (Auto) , Lymphocytes (%) (Auto) , Monocytes (%) (Auto) , Eosinophils (%) (Auto) , Basophils (%) (Auto) , Differential Total Cells Counted 100, Neutrophils % (Manual) 23L, Lymphocytes % (Manual) 65H, Monocytes % (Manual) 12H, Eosinophils % (Manual) 0, Basophils % (Manual) 0, Band Neutrophils 0, Platelet Estimate Adequate, Platelet Morphology Normal, Hypochromasia 1+, Sodium Level 138, Potassium Level 3.6, Chloride Level 108H, Carbon Dioxide Level 24, Anion Gap 7, Blood Urea Nitrogen 22H, Creatinine 1.0, Estimat Glomerular Filtration Rate 57.6, Glucose Level 83, Calcium Level 8.2L Current Medications Medications (Trade) Dose Ordered Sig/Gaurav Route PRN Reason Start Time Stop Time Status Last Admin Dose Admin Acetaminophen (Tylenol) 500 mg Q4H PRN ORAL Mild Pain (Pain Scale 1-3) 01/19/20 21:30 02/18/20 21:29 Bisacodyl (Dulcolax) 10 mg DAILYPRN PRN RECTAL Constipation 01/19/20 21:30 04/18/20 21:29 Cyanocobalamin (Vitamin B-12) 500 mcg DAILY ORAL 01/20/20 09:00 02/19/20 08:59 01/24/20 09:00 Docusate Sodium (Colace) 200 mg DAILY ORAL 01/20/20 09:00 02/19/20 08:59 01/24/20 09:00 Enoxaparin Sodium (Lovenox) 50 mg EVERY 12 HOURS SUBQ 01/20/20 21:00 04/19/20 20:59 01/24/20 09:01 Ibuprofen (Advil) 200 mg Q4H PRN ORAL persistent headache 01/19/20 21:15 02/18/20 21:14 Magnesium Hydroxide (Mom) 30 ml DAILYPRN PRN ORAL Constipation 01/19/20 21:30 02/18/20 21:29 Multivitamins (Multivitamins) 1 tab DAILY ORAL 01/20/20 09:00 02/19/20 08:59 01/24/20 09:00 Patient Own Medication (Patient's Own Med) 1 ea DAILY ORAL 01/20/20 14:00 02/19/20 13:59 01/24/20 09:00 Polyethylene Glycol (Miralax) 17 gm DAILY PRN ORAL Constipation 01/19/20 21:30 02/18/20 21:29 Trimethoprim/ Sulfamethoxazole (Bactrim-DS) 1 tab 3XW ORAL 01/21/20 09:00 01/28/20 08:59 01/24/20 08:59 Vitamin B Complex (Vitamin B Complex) 1 tab DAILY ORAL 01/20/20 09:00 04/19/20 08:59 01/24/20 08:59 Vitamin D (Vitamin D) 5,000 intlu DAILY ORAL 01/20/20 09:00 02/19/20 08:59 01/24/20 08:59 Assessment/Plan Assessment/Plan 1. COVID-19 pneumonia. - pt in isolation - Decadron added - Defer the use of remdesivir to ID specialist. - Oxygen prn - Saturating 97% on RA 2. Elevated inflammatory markers with high D-dimer. - on Lovenox - Today pt refuses leg swelling, pain, or chest pain, SOB 3. Right lower lobe infiltrate. 4. HIV of unknown stage - on Biktarvy 5. History of liver disease. 01/19/2020 CXR: calcified granuloma in the right midlung Discharge planned for today The care for this patient was discussed with my supervising physician Seen and examined by Dr. Perdomo as well Time spent for this case was approximately 31 minutes Janes Torres Jan 24, 2020 10:35
--- NOTE | 2020-01-24 10:41 | NUR ---
*--DISCHARGE PLANNING*-* PATIENT HAS BEEN REFERRED TO: [facility] P: [phone]
--- NOTE | 2020-01-24 11:51 | NUR ---
NURSE NOTES: Dr.Masoud Teran cleared patient for discharge. no antibiotic needed upon discharge. order noted and carried out.
[2020-01-24 12:00] VITALS: BP 110/68
--- NOTE | 2020-01-24 12:03 | Infectious Diseases Prog Note ---
Assessment/Plan Assessment/Plan IMPRESSION: COVID-19 disease, seems to be mild, HIV unknown stage, Anemia, Altered mental status. RECOMMENDATION: We will continue Biktarvy. We will continue Bactrim. Agree with discharge Subjective ROS Limited/Unobtainable: Yes Constitutional: Denies: fever Allergies: Coded Allergies: LAMIVUDINE (Verified Allergy, Unknown, 01/19/20) RISPERIDONE (Verified Allergy, Unknown, 01/19/20) Objective Last 24 Hour Vital Signs Date Time Temp Pulse Resp B/P (MAP) Pulse Ox O2 Delivery O2 Flow Rate FiO2 01/24/20 09:00 Room Air 01/24/20 08:00 97.8 86 18 108/64 (79) 96 01/24/20 04:00 97.6 78 19 118/75 (89) 97 01/24/20 00:00 97.9 82 20 110/70 (83) 99 01/23/20 21:00 Room Air 01/23/20 20:00 97.6 80 19 113/69 (84) 98 01/23/20 16:00 98.0 82 18 120/79 (93) 98 Height (Feet): 5 Height (Inches): 0.00 Weight (Pounds): 110 HEENT: mucous membranes moist Respiratory/Chest: lungs clear Cardiovascular: normal rate Abdomen: soft, non tender Extremities: no edema Neurologic/Psychiatric: alert, responsive Laboratory Tests Test 01/24/20 04:00 White Blood Count 4.5 K/UL (4.8-10.8) L Red Blood Count 3.33 M/UL (4.20-5.40) L Hemoglobin 10.4 G/DL (12.0-16.0) L Hematocrit 29.8 % (37.0-47.0) L Mean Corpuscular Volume 89 FL (80-99) Mean Corpuscular Hemoglobin 31.2 PG (27.0-31.0) H Mean Corpuscular Hemoglobin Concent 34.9 G/DL (32.0-36.0) Red Cell Distribution Width 13.9 % (11.6-14.8) Platelet Count 228 K/UL (150-450) Mean Platelet Volume 5.9 FL (6.5-10.1) L Neutrophils (%) (Auto) % (45.0-75.0) Lymphocytes (%) (Auto) % (20.0-45.0) Monocytes (%) (Auto) % (1.0-10.0) Eosinophils (%) (Auto) % (0.0-3.0) Basophils (%) (Auto) % (0.0-2.0) Differential Total Cells Counted 100 Neutrophils % (Manual) 23 % (45-75) L Lymphocytes % (Manual) 65 % (20-45) H Monocytes % (Manual) 12 % (1-10) H Eosinophils % (Manual) 0 % (0-3) Basophils % (Manual) 0 % (0-2) Band Neutrophils 0 % (0-8) Platelet Estimate Adequate Platelet Morphology Normal Hypochromasia 1+ Sodium Level 138 MMOL/L (136-145) Potassium Level 3.6 MMOL/L (3.5-5.1) Chloride Level 108 MMOL/L (98-107) H Carbon Dioxide Level 24 MMOL/L (21-32) Anion Gap 7 mmol/L (5-15) Blood Urea Nitrogen 22 mg/dL (7-18) H Creatinine 1.0 MG/DL (0.55-1.30) Estimat Glomerular Filtration Rate 57.6 mL/min (>60) Glucose Level 83 MG/DL (74-106) Calcium Level 8.2 MG/DL (8.5-10.1) L Current Medications Medications (Trade) Dose Ordered Sig/Gaurav Route PRN Reason Start Time Stop Time Status Last Admin Dose Admin Acetaminophen (Tylenol) 500 mg Q4H PRN ORAL Mild Pain (Pain Scale 1-3) 01/19/20 21:30 02/18/20 21:29 Bisacodyl (Dulcolax) 10 mg DAILYPRN PRN RECTAL Constipation 01/19/20 21:30 04/18/20 21:29 Cyanocobalamin (Vitamin B-12) 500 mcg DAILY ORAL 01/20/20 09:00 02/19/20 08:59 01/24/20 09:00 Docusate Sodium (Colace) 200 mg DAILY ORAL 01/20/20 09:00 02/19/20 08:59 01/24/20 09:00 Enoxaparin Sodium (Lovenox) 50 mg EVERY 12 HOURS SUBQ 01/20/20 21:00 04/19/20 20:59 01/24/20 09:01 Ibuprofen (Advil) 200 mg Q4H PRN ORAL persistent headache 01/19/20 21:15 02/18/20 21:14 Magnesium Hydroxide (Mom) 30 ml DAILYPRN PRN ORAL Constipation 01/19/20 21:30 02/18/20 21:29 Multivitamins (Multivitamins) 1 tab DAILY ORAL 01/20/20 09:00 02/19/20 08:59 01/24/20 09:00 Patient Own Medication (Patient's Own Med) 1 ea DAILY ORAL 01/20/20 14:00 02/19/20 13:59 01/24/20 09:00 Polyethylene Glycol (Miralax) 17 gm DAILY PRN ORAL Constipation 01/19/20 21:30 02/18/20 21:29 Trimethoprim/ Sulfamethoxazole (Bactrim-DS) 1 tab 3XW ORAL 01/21/20 09:00 01/28/20 08:59 01/24/20 08:59 Vitamin B Complex (Vitamin B Complex) 1 tab DAILY ORAL 01/20/20 09:00 04/19/20 08:59 01/24/20 08:59 Vitamin D (Vitamin D) 5,000 intlu DAILY ORAL 01/20/20 09:00 02/19/20 08:59 01/24/20 08:59 Karl Henderson MD Jan 24, 2020 12:03
--- NOTE | 2020-01-24 12:42 | NUR ---
*-*DISCHARGE PLANNED*-* PATIENT HAS BEEN ACCEPTED AND WILL BE DISCHARGE BACK TO: [facility] P: [phone] FOR NURSE TO NURSE REPORT ROOM# ANEX 9.[facility]ORT[facility] SET FOR 2PM S/W [facility] [id number]. PLACED A CALL TO PATIENTS , EBEN BURTON, NO ANSWER LEFT A VOICE MESSAGE IN REGARDS TO DISCHARGE PLAN.
--- NOTE | 2020-01-24 13:39 | NUR ---
NURSE NOTES: given patient report to [facility]. spoke to KAILEY Delgado
--- NOTE | 2020-01-24 15:00 | NUR ---
NURSE NOTES: patient was discharged to [facility] via ambulance [facility] with stable condition. alert to name. verbally responsive. no respiratory distress noted on room air. no pain at this time. given dc packet including new prescription and patient home medication to ambulance personnel. checked and counted belongings with patient. patient was unable to sign on the document. verified with Jn charge nurse. removed IV and ID band.
--- NOTE | 2020-01-25 14:55 | NUR ---
INSURANCE [employer]INICALS/DC INSTRUCTIONS FAXED ( 01/22-01/23) TO [facility]UR[facility] MCCLELLAND [phone]
--- NOTE | 2020-01-26 12:30 | Discharge Summary ---
Discharge Summary Discharge Summary _ DATE OF ADMISSION: 01/19/2020 DATE OF DISCHARGE: 01/24/2020 DISCHARGED BY: Dr. Gallegos REASON FOR ADMISSION: 54 years old female with past medical history of HIV, liver disease, hepatic encephalopathy, CVA, resident of intermediate facility was sent for evaluation due to outbreak of COVID-19 at the facility. Patient reported that she was unable to taste any food and had flulike symptoms. Upon evaluation vital signs were stable . Rapid COVID-19 was positive. Chest x-ray revealed evidence of old granulomatous disease. No acute process. Laboratory work-up revealed elevated D-dimer above 35.2. CRP 1.8, ferritin 129, LDH 273. Stable electrolytes. BUN 23, creatinine 0.9. Glucose 90. Lactic acid 0.6. Troponin negative.pro BNP 60. EKG reveals sinus rhythm no acute ischemic changes No leukocytosis, stable hemoglobin , hematocrit and platelet count. Patient subsequently admitted for further management CONSULTANTS: pulmonary Dr. Perdomo ID specialist Dr. Karl Henderson mixer operator raw salt/oncologist Dr. Win [facility] COURSE: Patient admitted to medical surgical floor. Patient was ljept in droplet isolation. Patient started on steroids and full anticoagulation given elevated D-dimer. Steroids were started. Supplemental oxygen was on board as needed, however pulse oximetry remained stable on room air . Patient was on empiric antibiotic . Biktarvy continued. Potassium was replaced. Patient clinically stabilized and was ready for discharge . FINAL DIAGNOSES: COVID-19 pneumonia High D-dimer Right lower lobe infiltrate HIV Liver disease Altered mental status DISCHARGE MEDICATIONS: See Medication Reconciliation list. DISCHARGE INSTRUCTIONS: Patient was discharged to the intermediate facility. Follow up with medical doctor at the facility. I have been assigned to dictate discharge summary for this account. I was not involved in the patient's management. Jacquelyn Marrufo NP Jan 26, 2020 12:29
--- NOTE | 2020-01-26 14:53 | NUR ---
INSURANCE DC SUMMARY FAXED TO [facility] [phone]
== END 2020-01-24 15:10 | DRG 137 ==
LOC: EDBD 12:47 → EMR 13:11 → 4E 14:25 → EDBEDREQ 15:49
DX: U07.1 COVID-19 (principal); J12.89 Other viral pneumonia; Z88.8 Allergy status to other drugs, medicaments and biological substances; E86.0 Dehydration; J98.4 Other disorders of lung; D64.9 Anemia, unspecified; R41.82 Altered mental status, unspecified; Z86.73 Personal history of transient ischemic attack (TIA), and cerebral infarction without residual deficits; K76.9 Liver disease, unspecified
CPT/HCPCS: 36415; 71045; 80048; 80053; 82140; 82550; 82553; 82728; 82803; 83605; 83615; 83735; 83880; 84484; 85007; 85025; 85379; 85610; 85730; 86140; 87040; 87081; 93005; 96361; 96365; 96367; 99291; J7030; J8499; U0002